=== PATIENT | female | born 1975 ===

== ENCOUNTER 2025-08-03 08:27 | Outpatient (REF) | payer OTHER, SELFPAY ==
--- NOTE | ~2025-08-03 | XR_ITS ---
EXAMINATION: XR HIP 2 OR MORE VIEWS RIGHT HISTORY: M25.551 - Pain in right hip COMPARISON: There are no prior studies available for comparison. FINDINGS: A single AP view of the pelvis and two views of the right hip are submitted. Osseous mineralization is normal. There is no fracture or dislocation. The joint space is maintained. The soft tissues are unremarkable. XR/XR hip RT min 2V IMPRESSION: Unremarkable examination of the right hip. Electronically signed by: Zackary Massey MD 08/03/2025 10:28 AM EDT
--- OUTSIDE RECORDS SUMMARY | 2025-08-04 08:46 | XMS_ITS | Clinical Summary ---
Author Organization [facility], Address [address] [place] [address] Phone Care Team Providers Care E Commerce Developer Name Role Phone Unavailable Primary Care Provider [...]
--- OUTSIDE RECORDS SUMMARY | 2025-08-04 08:46 | XMS_ITS | Clinical Summary ---
Author Organization [facility] Address [address] [place] [address] Phone Care Team Providers Care Atm Servicer Name Role Phone Physician, No Pcp Primary [...] - 06/29/2025 11:59 PM EDT Hospital Encounter [facility] Xray [address] [place] [address] Right hip pain Discharge Disposition: Home or Self Care 05/18/2025 4:30 PM EDT Office Visit Neurosurgery [place] [facility] [address] [place] [address] Tracey Storey MD Right hip pain (Primary Dx); Intractable back pain from Last 3 Months Surgical History Surgery Date Site/Laterality Comments KNEE ARTHROPLASTY Bilateral PROCEDURE: RI ARTHRS KNEE ABRASION ARTHRP/ICT ANALYST DRLG/MICROFX CARPAL TUNNEL RELEASE Bilateral PROCEDURE: RI NEUROPLASTY &/TRANSPOS MEDIAN NRV CARPAL TUNNE APPENDECTOMY PROCEDURE: RI APPENDECTOMY SECTION PROCEDURE: HISTORICAL DELIVERY ELBOW SURGERY Bilateral PROCEDURE: HISTORICAL ELBOW SURGERY SHOULDER SURGERY Bilateral PROCEDURE: HISTORICAL SHOULDER SURGERY LUMBAR FUSION 4 years ago Alif BARIATRIC SURGERY approx Medical History Medical History Date Comments Diabetes mellitus type 2, co ntrolled, with complications (CMS/HCC V24, CMS/HCC V28) DX:Diabetes mellitus type 2, controlled, with complications ([facility]) Depressive disorder DX:Depressiv e disorder Anxiety [...] of the pelvis and right hip. Code 00379 -------- FINAL REPORT -------- Dictated By: Sammy Young Dictated Date: 06/29/2025 09:21 ET Assigned Physician: Sammy Young Reviewed and Electronically Signed By: Sammy Young Signed Date: 06/29/2025 09:23 ET Workstation ID: [id number] Transcribed By: Self Edit Transcribed Date: 06/29/2025 [...] of the pelvis and right hip. Code 00205 -------- FINAL REPORT -------- Dictated By: Sammy Young Dictated Date: 06/29/2025 09:21 ET Assigned Physician: Sammy Young Reviewed and Electronically Signed By: Sammy Young Signed Date: 06/29/2025 09:23 ET Workstation ID: [id number] Transcribed By: Self Edit Transcribed Date: 06/29/2025 09:21 ET Tracey Storey MD IMG XR PROCEDURES Final Result * (ABNORMAL) Hemoglobin A1c (03/22/2025 9:10 PM EDT) Hemoglobin A1C 8.3(H) <6.5 % LAB CHEMISTRY METHOD 03/23/2025 1:53 PM EDT [facility] Mean Bld Glu Estim. 192 mg/dL LAB CHEMISTRY METHOD 03/23/2025 1:53 PM EDT [facility] Blood Venous blood specimen / Unknown Venipuncture / Unknown 03/22/2025 9:10 PM EDT 03/22/2025 9:39 PM EDT us Eva BENNETT LAB BLOOD ORDERABLES Final R esult [facility] [address] [place] [address], [place] [phone] * (ABNORMAL) Comprehensive metabolic panel (03/22/2025 9:10 PM EDT) Sodium 136 133 - 145 mmol/L LAB CHEMISTRY METHOD 03/22/2025 10:04 PM [facility] Potassium 4.3 3.5 - 5.5 mmol/L LAB CHEMISTRY METHOD 03/22/2025 10:04 PM [facility] Chloride 101 96 - 110 mmol/L LAB CHEMISTRY METHOD 03/22/2025 10:04 PM [facility] CO2 30 21 - 32 mmol/L LAB CHEMISTRY METHOD 03/22/2025 10:04 PM [facility] Anion Gap 5 3 - 11 LAB CHEMISTRY METHOD 03/22/2025 10:04 PM [facility] Glucose 179(H) 70 - 100 mg/dL LAB CHEMISTRY METHOD 03/22/2025 10:04 PM [facility] BUN 13 5 - 25 mg/dL LAB CHEMISTRY METHOD 03/22/2025 10:04 PM [facility] Creatinine 0.76 0.50 - 1.10 mg/dL LAB CHEMISTRY METHOD 03/22/2025 10:04 PM [facility] eGFR 97 >=60 mL/min/1. 73m2 LAB CHEMISTRY METHOD 03/22/2025 10:04 PM [facility] Comment:Calculation based on the Chronic Kidney Disease Epidemiology Collaboration (CKD-EPI) equation refit without adjustment for race. BUN/Creatinine Ratio 17.1 LAB CHEMISTRY METHOD 03/22/2025 10:04 PM [facility] Calcium 9.1 8.5 - 10.5 mg/dL LAB CHEMISTRY METHOD 03/22/2025 10:04 PM [facility] AST (SGOT) 35 10 - 42 unit/L LAB CHEMISTRY METHOD 03/22/2025 10:04 PM [facility] ALT (SGPT) 31 10 - 60 unit/L LAB CHEMISTRY METHOD 03/22/2025 10:04 PM [facility] Alkaline Phosphatase 79 42 - 121 unit/L LAB CHEMISTRY METHOD 03/22/2025 10:04 PM [facility] Total Protein 7.7 6.0 - 8.0 g/dL LAB CHEMISTRY METHOD 03/22/2025 10:04 PM EDT [facility] Albumin 3.9 3.2 - 5.0 g/dL LAB CHEMISTRY METHOD 03/22/2025 10:04 PM EDT [facility] Total Bilirubin 0.4 0.0 - 1.4 mg/dL LAB CHEMISTRY METHOD 03/22/2025 10:04 PM EDT [facility] Blood Venous blood specimen / Unknown Venipuncture / Unknown 03/22/2025 9:10 PM EDT 03/22/2025 9:39 PM EDT us Kimmy BENNETT LAB BLOOD ORDERABLES Final Result [facility] [address] [place] [address], from Last 3 Months or Most Recently [...] currently active code status orders. Care Teams Atm Servicer Relationship Specialty Start Date End Date Physician, No Pcp PCP - General 06/29/25 Bo Carlin CNP Primary Care Provider 05/18/25
--- OUTSIDE RECORDS SUMMARY | 2025-08-04 08:46 | XMS_ITS | Clinical Summary ---
Author Organization [facility] Address [address] [place] [address] Care Team Providers Care Cad Administrator Name Role Phone Kelly Nyasia Patel [facility] Primary Care Provider [phone] Source Comments PLEASE NOTE, if this patient [...] complication, with long-term current use of insulin Use to check BG 1-2x/d UD DX [...] complication, with long-term current use of insulin Use to check BG 1x/d DX E11.9 Freestyle Lite 50 Each 2 Active lancets (FREESTYLE LANCETS) 28 gaugeIndications:T ype 2 diabetes mellitus without complication, with long-term current use of insulin USE TO TEST BLOOD GLUCOSE ONCE DAILY [...] complication, with long-term current use of insulin TAKE 1 TABLET BY MOUTH DAILY WITH [...] knee 0 Overview (11/30/2021): 11/12/20 Eval at [facility]. Recommends PT. Given brace. F/u PRN. Fibromyalgia 03/16/2020 Overview (03/02/2021): 04/27/[address] Osei at [facility]. Lab work sent. Continue gabapentin, f/u 2 weeks. 05/12/[address] Osei at [facility]. Recommends continue current medications. Elevated ESR liekly due to anemia. F/u 2 months for labs and /fu. Sprain of right knee 07/06/2018 Overview (01/18/2021): 11/13/2019 Eval at [facility] Ortho. Ordered MRI of knee. H/O complete [...] sleeve gastrectomy 12/11/2017 Overview (12/11/2017): Admitted 11/26/17-11/30/17 [facility], Dr Adkins. Post/op care complicated by intermittent fevers. Given tamiflu for + influenza A. Chronic low back pain s/p discectomy L4-L5 11/12 Overview (11/30/2021): S/p discectomy 2014, R>L, reports chronic disability since her surgery in 2014. Previously took gabapentin Surgery done at [facility] ? Dr Storey MRI 01/31/21 at [facility] shows IMPRESSION: 1. Stable annular fissure at L4-L5 and stable posterior annular bulge with small central protrusion. 2. Mild enhancement in the posterior annulus. 3. No central canal stenosis or neural foraminal narrowing. 03/16/21 F/u Neurosugery, discussed posterior vs anterior approach. Pt to meet with Dr Lezama. 05/17/21 underwent anterior discectomy/fusion L4-L5 at [facility], Dr Lezama. Left elbow pain 11/12/2017 Overview (11/12/2017): Per previous PCP S/P appendectomy 11/12/2017 Bilateral carpal tunnel syndrome 11/12/2017 Overview (11/12/2017): S/p release Depression with anxiety 11/12/2017 History of Helicobacter pylori infection 018 Insomnia 11/12/2017 Morbid Obesity 11/12/2017 Overview (11/21/2017): 11/12/17 Pre-Op viist with Dr Adkins at [facility] Gen Surg. Plan for gastric sleeve surgery Steatosis of liver 11/12/2017 CONCHITA (obstructive sleep apnea) 11/12/2017 Overview (11/12/2017): On CPAP PTSD (post-traumatic stress disorder) 11/12/2017 Overview (11/14/2017): Seen by Mary Maciel at [facility]. For PTSD and Depressive D/o, Prescribed Trazodone 100 mg qhs, Klonopin 1 mg TID, Ambien [address] Markus Michael Type 2 diabetes mellitus wit hout complication, with long-term current use of insulin 10/22/2017 Overview (11/12/2017): Followed by Dr Grossman, [facility] Endocrine Managed on Lantus 40, metformin [...] Screening 12/08/2020 12/08/2019 Hemoglobin A1c 04/03/2021 10/04/2020, 02/0 01/2020, 12/17/2017 CT Colonography 2021 Colonoscopy 2021 Colorectal [...] 06/26/20 22, 05/20/2020, 12/08/2019, Additional history exists [id number] ( season) 2025 11/17/2021, 04/26/2021, 04/05/2021 Imm-Influenza (#1) 2025 10/04/2020, [...] complication, with long-term current use of insulin ([facility]) from Last 3 Months or Most Recently Relevant to Health Maintenance Results * (ABNORMAL) HEMOGLOBIN, GLYCOSYLATED (A1C) (10/04/2020 9:55 AM EST) GLYCATED HEMOGLOBIN A1C 6.8(H) <6.5 % [facility] ESTIMATED AVERAGE GLUCOSE 148 mg/dL [facility] 10/04/2020 9:55 AM EST 10/04/2020 11:03 AM EST Narrative [facility] - 10/04/2020 1:55 PM EST [employer], [place] [address] Programmer Analyst Health It - Sarah Benites MD PT ID [id number] ORD# [id number] Nyasia Mendoza [facility] - BLOOD DRAW Final Re sult [facility] [address] [place] [address], * (ABNORMAL) COMPRE METAB PANEL (10/04/2020 9:55 AM EST) GLUCOSE 127(H) 70 - 100 mg/dL [facility] Comment:Reference range appl icable to fasting specimens only BUN 16 5 - 25 mg/dL [facility] CREAT 0.86 0.5 - 1.1 mg/dL [facility] GLOMERULAR FILTRATION RATE > 60 [facility] Comment: If patient is -Ghanaian, multiply result by 1.21 Chronic Kidney Disease: < 60 ml/min/1.73 square meters Kidney Failure: < 15 ml/min/1.73 square meters SODIUM 138 135 - 145 mEq/L [facility] POTASSIUM 4.2 3.5 - 5.5 mmol/L [facility] CHLORIDE 107 96 - 110 mmol/L [facility] CO2 25 21 - 32 mmol/L [facility] ANION GAP 6 3 - 11 [facility] CALCIUM 9.5 8.5 - 10.5 mg/dL [facility] ALBUMIN 3.8 3.2 - 5.0 G/dL [facility] 10/04/2020 9:55 AM EST 10/04/2020 11:03 AM EST Narrative [facility] - 10/04/2020 1:11 PM EST [facility] [employer], a member of [address] [address] Programmer Analyst [employer] It - Sarah Benites MD PT ID [id number] ORD# [id number] Nyasia Simeoninda [facility] - BLOOD DRAW Final Re sult [facility] [address] [place] [address], * LIPID PANEL (12/08/2019 9:52 AM EST) CHOLESTEROL 175 0 - 200 mg/dL [facility] TRIGLYCERIDES 92 0 - 150 mg/dL [facility] HDL CHOLESTEROL 58 >40 mg/dL [facility] LDL CALCULATED 99 0 - 100 mg/dL [facility] TC-HDLC RATIO 3.0 0 - 4.4 mg/dL [facility] Blood specimen (specimen) Blood / Unknown 12/08/2019 9:52 AM EST 12/08/2019 11:27 AM EST Narrative [facility] - 12/08/2019 4:52 PM EST [employer] [place] [address] Programmer Analyst [employer] It - Sarah Benites MD PT ID [id number] ORD# [id number] Nyasia [facility] - [place] [address], * MICROALBUMIN/CREATININE RATIO, URINE, RANDOM (12/08/2019 9:51 AM EST) CREATININE, RANDOM URINE 278 mg/dL [facility] MICROALBUMIN, RANDOM 19.5 0.0 - 29.0 mg/L [facility] MICROALB/CRE RATIO RANDOM 7.0 0.0 - 30.0 mg/G [facility] Urine specimen (specimen) Urine specimen / Unknown 12/08/2019 9:51 AM EST 12/08/2019 11:27 AM EST Narrative [facility] - 12/08/2019 5:00 PM EST [employer] [place] [address] Programmer Analyst [employer] It - Sarah Benites MD PT ID [id number] ORD# [id number] Ny[facility] URINE AMBULATORY Edit ed Result - Final [facility] [address] [place] [address], from Last 3 Months or Most Recently Relevant to Health Maintenance [facility] Care Teams Cad Administrator Relationship Specialty Start Date End Date Nyasia Mendoza FNP [address] [place] [address] PCP - General Family Medicine, SUPERVISOR ROLLING ROOM 12/06/16
== END 2025-08-03 08:28 | disposition home or self-care (01) ==
LOC: HO.HOSX 08:27
PROVIDERS: Visit Provider Physician Assistant
DX: M70.61 Trochanteric bursitis, right hip (principal)
CPT/HCPCS: 73502; 99202

== ENCOUNTER 2025-08-03 09:28 | Outpatient (AMB) | payer OTHER, SELFPAY ==
--- NOTE | 2025-08-03 09:47 | A.OFFVIS_ITS ---
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 Patient reports her pain has been present since March, denies injury. MRI of lumbar spine was obtained while she was hospitalized at [facility]. Her pain is located at the lateral aspect of hip that travels down her leg to her knee and into her groin area. An order for at home therapy was placed however this increased her pain. No other treatment to her hip. Allergies ciprofloxacin (From CIPRO) Allergy (Unknown, Verified 08/03/25 09:59) HIVES cortisone (CORTISONE) Allergy (Unknown, Verified 08/03/25 09:59) CHEST TIGHTENS penicillin G Allergy (Unknown, Verified 08/03/25 09:59) Unknown Penicillins (PCN) Allergy (Unknown, Verified 08/03/25 09:59) HIVES Medication List - Last Reconciled 08/03/25 by Gwyn Isaac PA-C amitriptyline 100 mg PO BEDTIME celecoxib (Celebrex) 200 mg PO BID 30 days diclofenac sodium 1% 4 grams topical QID 30 days omeprazole 20 mg PO BID rosuvastatin 5 mg PO DAILY HPI HPI LEADERSHIP DEVELOPMENT MANAGER-RT hip pain: Details: 49 yo female presents to the office today for right hip pain since March 2025. She states she flew to [place] and then back and suddenly had pain. She feels when she walks it feels the hip is crushing. She states she has numbness that goes down the leg. she c/o pain along the lateral side of the hip which is worse with sleeping. She did have an MRI of the LB spine which shows Disc bulge L3-4. She also had L4-5 disc [place] [address] [facility] Surgical History (Updated 08/03/25 @ 09:52 by ZURDO Cha) History of sleeve gastrectomy Hx of section Hx of appendectomy History of elbow surgery History of lumbar surgery History of arthroscopic surgery of shoulder Hx of carpal tunnel repair Hx of knee surgery Social History (Updated 08/03/25 @ 09:52 by ZURDO Cha) Patient Tobacco Use Status: Never used Tobacco Current occupational status: unemployed Review of Systems Const All systems reviewed & are unremarkable except as noted in HPI and below Physical Exam Vital Signs: BMI result Body Mass Index 34.0 Const General: cooperative, healthy appearing, comfortable and no acute distress Orientation/consciousness: patient oriented x3 HEENT Head: Yes normal to inspection and Yes atraumatic Ears: hearing grossly normal bilaterally Eyes General: appearance normal, both eyes and all related structures Neck Neck: Yes normal visual inspection and Yes no lymphadenopathy Resp Effort & Inspection: normal respiratory effort and able to speak in complete sentences Cardio Peripheral pulses: Peripheral pulses 2+ throughout Neuro General: patient oriented x3 Extrem Other: Right hip normal to inspection. No pain with ROM of the hip. Pain along the greater trochanter. No pain with hip flexion or abduction.There is tenderness along the si joint, Negative SLR. NVI. Psych Appearance: well kempt Results Reviewed Results Reviewed: Xrays were obtained in the office today and personally reviewed by me of the right hip are negative for acute or chronic abnormalities Assessment & Plan Assessment & Plan (1) Trochanteric bursitis, right hip: Code(s): M70.61 - Trochanteric bursitis, right hip Category: Medical Plan: Discussed options which includes physical therapy to work on strengthening and conditioning. She is allergic to steroid and therefore can not have cortisone injection. I did send a prescription for Celebrex to the pharmacy to try for 2 weeks to help with inflammation. I also sent a prescription for diclofenac gel. The patient will follow up with any concerns otherwise as needed. Orders: Orders XR hip RT min 2V Today M25.551 - Pain in right hip PT Evaluation and Treatment Today M70.61 - Trochanteric bursitis, right hip Medications: New celecoxib (Celebrex) 200 mg PO BID 60 caps 3RF 30 days diclofenac sodium 1% apply to single knee, ankle, foot; for foot includes sole/toes/top of foot 4 grams topical QID 100 grams 0RF 30 days Coding Level of Care Code New Pt Level 3 (29378) Complex EM visit Add On G2211 Diagnoses Trochanteric bursitis, right hip M70.61
[2025-08-03 09:48] VITALS: BMI 34.0
--- OUTSIDE RECORDS SUMMARY | 2025-08-03 10:15 | XMS_ITS | Clinical Summary ---
Author Organization [facility] Address [address] [place] [address] Phone Care Team Providers Care Block Piler Name Role Phone Physician, No Pcp Primary Care Provider Unavaila ble Allergies Active Allergy Reactions Criticality Noted Date Comments Ciprofloxacin Hives 03/22/2025 Cortisone Unknown 03/23/2025 Penicillins Unknown 03/22/2025 Childhood Medications amitriptyline (ELAVIL) 100 mg tablet Take 1 tablet (100 mg total) by mouth at bedtime. at bedtime 5 Active omeprazole (PriLOSEC) [address] capsule Take 1 capsule (20 mg total) by mouth 2 (two) times a day before meals. Active rosuvastatin (CRESTOR) 5 mg tablet Take 1 tablet (5 mg total) by mouth 1 (one) time each day. at bedtime Active Heartburn Relief, famotidine, 10 mg tablet Take 1 tablet (10 mg total) by mouth 2 (two) times a day. Active naloxone (NARCAN) 4 mg/0.1 mL nasal sprayIndications :opioid overdose,opioid- induced respiratory depression Administer 1 each (4 mg total) into affected nostril(s) if needed for opioid reversal or respiratory depression. Give 4 mg (1 spray) into one nostril. May repeat every 2-3 minutes if needed, alternating nostrils, until medical assistance becomes available. 2 each 5 03/23/20 26 Active acetaminophen (TYLENOL) 500 mg tablet Take 1 tablet (500 mg total) by mouth. 1 Active tiZANidine (ZANAFLEX) 4 mg tablet Take 0.5 tablets (2 mg total) by mouth every 8 (eight) hours if needed for muscle spasms. 45 tablet 5 Active Active Problems Problem Noted Date Diagnosed Date Right hip pain 05/18/2025 Assessment & Plan (05/18/2025 5:57 PM EDT): The focus of Ms. Narvaez's pain is really at the right hip. This is why she is using a walker and why she is falling. She is tender at the hip and with mechanical testing in each direction provoking the same pain in her hip and groin. There was no trauma but this is unremitting and she describes it as feeling like bone crushing . I am going to send her for right hip x-rays and will then refer to orthopedics if there is any finding. Intractable back pain 03/23/2025 Assessment & Plan (05/18/2025 5:44 PM EDT): Ms. Narvaez was referred back for intractable back pain after her long plane ride but the majority of this radiates to her right hip and leg. She states there was no improvement with home physical therapy and the lumbar spine MRI from her trip to the emergency room looks good, with no source of her right radiculopathy and, equally is importantly, no sign of adjacent segment disease. She continues to use a walker and has fallen a few times flaring up her right sided pain and spasm, she states this does not feel like her fibromyalgia which typically manifests in her upper extremities. I have renewed her tizanidine. Encounters Date Type Department Care Team Description 06/29/2025 9:03 AM EDT - 06/29/2025 11:59 PM EDT Hospital Encounter [facility] [address] [place] [address] Right hip pain Discharge Disposition: Home or Self Care 05/18/2025 4:30 PM EDT Office Visit Neuro[facility] [address] [place] [address] Tracey Storey MD Right hip pain (Primary Dx); Intractable back pain from Last 3 Months Surgical History Surgery Date Site/Laterality Comments KNEE ARTHROPLASTY Bilateral PROCEDURE: HI ARTHRS KNEE ABRASION ARTHRP/RURAL CARRIER ASSOCIATE DRLG/MICROFX CARPAL TUNNEL RELEASE Bilateral PROCEDURE: HI NEUROPLASTY &/TRANSPOS MEDIAN NRV CARPAL TUNNE APPENDECTOMY PROCEDURE: HI APPENDECTOMY SECTION PROCEDURE: HISTORICAL DELIVERY ELBOW SURGERY Bilateral PROCEDURE: HISTORICAL ELBOW SURGERY SHOULDER SURGERY Bilateral PROCEDURE: HISTORICAL SHOULDER SURGERY LUMBAR FUSION 4 years ago Alif BARIATRIC SURGERY approx Medical History Medical History Date Comments Diabetes mellitus type 2, co ntrolled, with complications (CMS/HCC V24, CMS/HCC V28) DX:Diabetes mellitus type 2, controlled, with complications ([facility]) Depressive disorder DX:Depressiv e disorder Anxiety state DX:Anxiety state Fibromyalgia Social History Tobacco Use Types Packs/Day Years Used Date Smoking Tobacco: Never Smokeless Tobacco: Never Alcohol Use Standard Drinks/Week Comments Never 0 (1 standard drink = 0.6 oz pur e alcohol) Interpersonal Safety Answer Date Record ed Physical Abuse Unrecognized value 03/23/2025 Verbal Abuse Unrecognized value 03/23/2025 Comments Unknown Sex and Gender Information Value Date Recorded Sex Assigned at Not on file Legal Sex Female 9:03 AM EST Gender Identity Not on file Sexual Orientation Not on file Obstetrics History Last Filed Vital Signs Vital Sign Reading Time Taken Comments Blood Pressure 128/74 03/23/2025 3:01 PM EDT Pulse 86 03/23/2025 3:01 PM EDT Temperature 36.7 C (98.1 F) 03/23/2025 3:01 PM EDT Respiratory Rate 16 03/23/2025 3:01 PM EDT Oxygen Saturation 96% 03/23/2025 3:01 PM EDT Inhaled Oxygen Concentration - - Weight 90.7 kg (200 lb) 05/18/2025 4:51 PM EDT Height 160 cm (5' 3 ) 05/18/2025 4:51 PM EDT Body Mass Index 35.43 05/18/2025 4:51 PM EDT Plan of Treatment Health Maintenance Due Date Last Done Comments Breast Cancer Screening 1976 Colorectal Cancer Screening: Colonoscopy 1976 Diabetes: Annual Foot Exam 1986 Diabetes: Annual Retina Eye Exam 1986 Hepatitis A Vaccines (1 of 2 - Risk 2-dose series) 1995 Cervical Cancer Screening: Pap Smear 1997 Hepatitis B Vaccines (2 of 2 - CpG 2-dose series) 11/01/2020 10/04/2020 HIV Screening 10/08/2022 Hepatitis C Screening 10/08/2022 Social Influencers of Health Screening 10/08/2022 Depression Screening 11/05/2024 Cholesterol Screening (Lipid Panel) 12/08/2024 12/08/2019, 12/08/2019, 12/17/2017 Diabetes: Annual Urine Albumin-Creatinine Ratio (uACR) 03/22/2025 12/08/2019 Influenza Vaccine (#1) 2025 , 10/04/2020, 08/02/2017, Additional history exists Diabetes: Blood Sugar Control Test (HGBA1C) 09/22/2025 03/22/2025, 10/04/2020 Diabetes: Annual GFR (Glomerular Filtration Rate) 03/22/2026 03/22/2025, 10/04/2020 DTaP,Tdap,and Td Vaccines (3 - Td or Tdap) 12/08/2029 12/08/2019, 12/22/2008 RSV Immunization Adult Patients (1 - 1-dose 75+ series) 2051 COVID-19 Vaccine Completed 11/12/2024, , 04/26/2021, Additional history exists Pneumococcal Vaccine: Pediatrics (0 to 5 Years) and At-Risk Patients (6 to 49 Years) Aged Out 11/12/2024, 05/29/2013 No longer eligibl e based on patient's age to complete this topic HIB Vaccines Aged Out No longer eligi ble based on patient's age to complete this topic HPV Vaccines Aged Out No longer eligi ble based on patient's age to complete this topic IPV Vaccines Aged Out No longer eligi ble based on patient's age to complete this topic MMR Vaccines Aged Out No longer eligi ble based on patient's age to complete this topic Meningococcal ACWY Vaccine Aged Out N o longer eligible based on patient's age to complete this topic Meningococcal B Vaccine Aged Out No l onger eligible based on patient's age to complete this topic RSV Immunization Patients Under 20 months Aged Out No longer eligible based on patient's age to complete this topic Varicella Vaccines Aged Out No longer eligible based on patient's age to complete this topic Procedures Procedure Name Priority Date/Time Associated Diagnosis Comments XR HIP 2-3 VIEWS RIGHT Routine 9:17 AM EDT Right hip pain COMPREHENSIVE METABOLIC PANEL STAT 03/22/2025 9:10 PM EDT HEMOGLOBIN A1C Add-On 03/22/2025 9:10 PM EDT from Last 3 Months or Most Recently Relevant to Health Maintenance Results * XR Hip 2-3 Views Right (06/29/2025 9:17 AM EDT) Anatomical Region Laterality Modality Lower Extremities, Hip Right Radiograp hic Imaging 06/29/2025 9:21 AM EDT Impressions 06/29/2025 9:23 AM EDT Normal examination of the pelvis and right hip. Code 82379 -------- FINAL REPORT -------- Dictated By: Sammy Young Dictated Date: 06/29/2025 09:21 ET Assigned Physician: Sammy Young Reviewed and Electronically Signed By: Sammy Young Signed Date: 06/29/2025 09:23 ET Workstation ID: [id number] Transcribed By: Self Edit Transcribed Date: 06/29/2025 09:21 ET Narrative 06/29/2025 9:23 AM EDT HISTORY: The patient is a 49-year-old female with chronic right hip pain, nontraumatic. FINDINGS: AP radiograph of the pelvis, along with coned-down AP and external rotation-abduction views of the right hip, are obtained. The study demonstrates no fracture, dislocation, or arthritic change. No osteolytic or osteoblastic lesion is demonstrated. No soft tissue abnormality is seen. The included portion of the lower lumbar spine demonstrates a disc prosthesis at the L4-5 level. Surgical clips are present in the left side of the pelvis. Procedure Note Sammy Young MD - 06/29/2025 HISTORY: The patient is a 49-year-old female with chronic right hip pain,nontraumatic. FINDINGS: AP radiograph of the pelvis, along with coned-down AP andexternal rotation-abduction views of the right hip, are obtained. Thestudy demonstrates no fracture, dislocation, or arthritic change. Noosteolytic or osteoblastic lesion is demonstrated. No soft tissueabnormality is seen. The included portion of the lower lumbar spine demonstrates a discprosthesis at the L4-5 level. Surgical clips are present in the left sideof the pelvis. IMPRESSION: Normal examination of the pelvis and right hip. Code 60585 -------- FINAL REPORT -------- Dictated By: Sammy Young Dictated Date: 06/29/2025 09:21 ET Assigned Physician: Sammy Young Reviewed and Electronically Signed By: Sammy Young Signed Date: 06/29/2025 09:23 ET Workstation ID: [id number] Transcribed By: Self Edit Transcribed Date: 06/29/2025 09:21 ET Tracey Storey MD IMG XR PROCEDURES Final Result * (ABNORMAL) Hemoglobin A1c (03/22/2025 9:10 PM EDT) Hemoglobin A1C 8.3(H) <6.5 % LAB CHEMISTRY METHOD 03/23/2025 1:53 PM EDT [facility] Mean Bld Glu Estim. 192 mg/dL LAB CHEMISTRY METHOD 03/23/2025 1:53 PM EDT [facility] Blood Venous blood specimen / Unknown Venipuncture / Unknown 03/22/2025 9:10 PM EDT 03/22/2025 9:39 PM EDT us Eva BENNETT LAB BLOOD ORDERABLES Final R esult [facility] [address] [place] [address], [place] [phone] * (ABNORMAL) Comprehensive metabolic panel (03/22/2025 9:10 PM EDT) Sodium 136 133 - 145 mmol/L LAB CHEMISTRY METHOD 03/22/2025 10:04 PM [facility] Potassium 4.3 3.5 - 5.5 mmol/L LAB CHEMISTRY METHOD 03/22/2025 10:04 PM [facility] Chloride 101 96 - 110 mmol/L LAB CHEMISTRY METHOD 03/22/2025 10:04 PM [facility] CO2 30 21 - 32 mmol/L LAB CHEMISTRY METHOD 03/22/2025 10:04 PM [facility] Anion Gap 5 3 - 11 LAB CHEMISTRY METHOD 03/22/2025 10:04 PM [facility] Glucose 179(H) 70 - 100 mg/dL LAB CHEMISTRY METHOD 03/22/2025 10:04 PM [facility] BUN 13 5 - 25 mg/dL LAB CHEMISTRY METHOD 03/22/2025 10:04 PM [facility] Creatinine 0.76 0.50 - 1.10 mg/dL LAB CHEMISTRY METHOD 03/22/2025 10:04 PM [facility] eGFR 97 >=60 mL/min/1. 73m2 LAB CHEMISTRY METHOD 03/22/2025 10:04 PM [facility] Comment:Calculation based on the Chronic Kidney Disease Epidemiology Collaboration (CKD-EPI) equation refit without adjustment for race. BUN/Creatinine Ratio 17.1 LAB CHEMISTRY METHOD 03/22/2025 10:04 PM [facility] Calcium 9.1 8.5 - 10.5 mg/dL LAB CHEMISTRY METHOD 03/22/2025 10:04 PM [facility] AST (SGOT) 35 10 - 42 unit/L LAB CHEMISTRY METHOD 03/22/2025 10:04 PM [facility] ALT (SGPT) 31 10 - 60 unit/L LAB CHEMISTRY METHOD 03/22/2025 10:04 PM [facility] Alkaline Phosphatase 79 42 - 121 unit/L LAB CHEMISTRY METHOD 03/22/2025 10:04 PM [facility] Total Protein 7.7 6.0 - 8.0 g/dL LAB CHEMISTRY METHOD 03/22/2025 10:04 PM EDT [facility] Albumin 3.9 3.2 - 5.0 g/dL LAB CHEMISTRY METHOD 03/22/2025 10:04 PM EDT [facility] Total Bilirubin 0.4 0.0 - 1.4 mg/dL LAB CHEMISTRY METHOD 03/22/2025 10:04 PM EDT [facility] Blood Venous blood specimen / Unknown Venipuncture / Unknown 03/22/2025 9:10 PM EDT 03/22/2025 9:39 PM EDT us Kimmy BENNETT LAB BLOOD ORDERABLES Final Result [facility] [address] [place] [address], from Last 3 Months or Most Recently Relevant to Health Maintenance Insurance [employer] [place] [employer] Advance Directives * Full Code - Default (Latest Code Status on File) Date Activated Date Inactivated Comments 03/23/2025 12:23 AM 03/23/2025 8:45 PM This is ord er is used when code status has not been discussed with the patient, or code status is otherwise unknown/unconfirmed To update the patient's code status, place a code status order. Do not modify or discontinue any currently active code status orders. Care Teams Block Piler Relationship Specialty Start Date End Date Physician, No Pcp PCP - General 06/29/25 Bo Carlin CNP Primary Care Provider 05/18/25
--- OUTSIDE RECORDS SUMMARY | 2025-08-03 10:15 | XMS_ITS | Clinical Summary ---
Author Organization [facility] Address [address] [place] [address] Care Team Providers Care Lever Tender Name Role Phone Kelly Molly [facility] Primary Care Provider [phone] Source Comments PLEASE NOTE, if this patient is a minor, it may be UNLAWFUL to discuss sensitive information that is contained in these records (such as FAMILY PLANNING, MENTAL HEALTH or SUBSTANCE ABUSE) with the minor patient's parent or other person without the patient's specific authorization.[facility] Allergies Active Allergy Reactions Criticality Noted Date Comments Cat Dander Hives 10/22/2017 Ciprofloxacin Hives 10/22/2017 Swelling and hives Cortisone SOB 10/22/2017 Penicillins Hives 10/22/2017 Medications blood-glucose meter monitoring kitIndications:Typ e 2 diabetes mellitus without complication, with long-term current use of insulin ([facility]) Use to check BG 1-2x/d UD DX E11.9 Freestyle Lite 1 Each 0 Active loperamide (IMODIUM A-D) 2 mg capsuleIndications :Chronic diarrhea Take 1 Cap by mouth 4 (four) times daily as needed for diarrhea 120 Cap 2 0 Active LORazepam (ATIVAN) 0.5 mg tabletIndications: Grief reaction Take 1 Tab by mouth nightly at bedtime as needed for anxiety 10 Tab 0 Active ferrous sulfate 325 mg (65 mg iron) tabletIndications: Iron deficiency anemia, unspecified iron deficiency anemia type Take 1 Tablet by mouth 2 (two) times daily with a meal 180 Tablet 1 0 Active acetaminophen (TYLENOL) 500 mg tabletIndications: Lumbar strain, initial encounter Take 1 Tablet by mouth every 4 (four) hours as needed for pain 120 Tablet 1 Active lidocaine (LIDODERM) 5 % patchIndications:C hronic pain of right knee Place 1 Patch onto the skin once daily (every 24 hours) 30 Patch 2 1 Active pregabalin (LYRICA) 75 mg capsuleIndications :Chronic right-sided low back pain with right-sided sciatica Take 1 Capsule by mouth 3 (three) times daily Further refills requires appt with PCP 21 Capsule 2 Active omeprazole (PRILOSEC) [address] capsuleIndications :S/P laparoscopic sleeve gastrectomy,Chroni c abdominal pain,Nausea and vomiting, intractability of vomiting not specified, unspecified vomiting type Take 1 Capsule by mouth 2 (two) times daily Further refills requires appt with PCP 14 Capsule 2 Active blood sugar diagnostic stripsIndications: Type 2 diabetes mellitus without complication, with long-term current use of insulin ([facility]) Use to check BG 1x/d DX E11.9 Freestyle Lite 50 Each 2 Active lancets (FREESTYLE LANCETS) 28 gaugeIndications:T ype 2 diabetes mellitus without complication, with long-term current use of insulin ([facility]) USE TO TEST BLOOD GLUCOSE ONCE DAILY 50 Each 2 Active traZODone (DESYREL) 50 mg tabletIndications: Depression with anxiety,PTSD (post-traumatic stress disorder) Take 1 Tablet by mouth nightly at bedtime Appt required for further refills. 7 Tablet 2 Active methocarbamoL (ROBAXIN) 500 mg tablet TAKE 1 TABLET BY MOUTH THREE TIMES DAILY NEEDED FOR MUSCLE SPASM 21 Tablet 2 Active metFORMIN (GLUCOPHAGE-XR) 750 mg 24 hr tabletIndications: Type 2 diabetes mellitus without complication, with long-term current use of insulin ([facility]) TAKE 1 TABLET BY MOUTH DAILY WITH DINNER. NEED APPT FOR REFILLS 7 Tablet 2 Active Active Problems Patient Care Coordination No te Formatting of this note migh t be different from the original. DME-cane, diabetic glucose monitor, CPAP-does not use it, wears glasses-needs PT-1-needs referral to [facility] Problem Noted Date Diagnosed Date Left ankle sprain 12/01/2021 Overview (12/01/2021): 11/01/[address] Stevens, [facility]. Dx: Left ankle sprain/ possible avulsion fracture. Recommend continue boot with full WB x 3 weeks and then f/u to start PT. COVID-19 07/21/2021 Overview (07/21/2021): tested positive for covid on 07/15/21 Vitamin D deficiency 01/07/2021 Iron deficiency anemia 10/04/2020 Anemia 07/19/2020 Patellofemoral arthritis of right knee 0 Overview (11/30/2021): 11/12/20 Eval at [facility]. Recommends PT. Given brace. F/u PRN. Fibromyalgia 03/16/2020 Overview (03/02/2021): 04/27/[address] Osei at [facility]. Lab work sent. Continue gabapentin, f/u 2 weeks. 05/12/[address] Osei at [facility]. Recommends continue current medications. Elevated ESR liekly due to anemia. F/u 2 months for labs and /fu. Sprain of right knee 07/06/2018 Overview (01/18/2021): 11/13/2019 Eval at [facility]. Ordered MRI of knee. H/O complete eye exam 04/04/2018 Overview (04/04/2018): 03/27/18 [facility]. No DR> Generalized abdominal pain 01/22/2018 Overview (01/22/2018): Admitted 01/08/18-01/12/18 with generalized abd pain. Admitted to surgery for eval d/t recent bariatric surgery. CT AP and UGI c/w postop changes, no leak or obstruction seen. Diet was advised, advised f/u with Dr Fitzgerald in 1-2 weeks. S/P laparoscopic sleeve gastrectomy 12/11/2017 Overview (12/11/2017): Admitted 11/26/17-11/30/17 [facility], Dr Adkins. Post/op care complicated by intermittent fevers. Given tamiflu for + influenza A. Chronic low back pain s/p discectomy L4-L5 11/12 Overview (11/30/2021): S/p discectomy 2014, R>L, reports chronic disability since her surgery in 2014. Previously took gabapentin Surgery done at [facility] ? Dr Storey MRI 01/31/21 at [facility] shows IMPRESSION: 1. Stable annular fissure at L4-L5 and stable posterior annular bulge with small central protrusion. 2. Mild enhancement in the posterior annulus. 3. No central canal stenosis or neural foraminal narrowing. 03/16/21 F/u Neurosugery, discussed posterior vs anterior approach. Pt to meet with Dr Lezama. 05/17/21 underwent anterior discectomy/fusion L4-L5 at [facility], Dr Lezama. Left elbow pain 11/12/2017 Overview (11/12/2017): Per previous PCP S/P appendectomy 11/12/2017 Bilateral carpal tunnel syndrome 11/12/2017 Overview (11/12/2017): S/p release Depression with anxiety 11/12/2017 History of Helicobacter pylori infection 018 Insomnia 11/12/2017 Morbid Obesity 11/12/2017 Overview (11/21/2017): 11/12/17 Pre-Op viist with Dr Adkins at [facility] Gen Surg. Plan for gastric sleeve surgery Steatosis of liver 11/12/2017 CONCHITA (obstructive sleep apnea) 11/12/2017 Overview (11/12/2017): On CPAP PTSD (post-traumatic stress disorder) 11/12/2017 Overview (11/14/2017): Seen by Mary Maciel at [facility]. For PTSD and Depressive D/o, Prescribed Trazodone 100 mg qhs, Klonopin 1 mg TID, Ambien [address] Markus Michael Type 2 diabetes mellitus wit hout complication, with long-term current use of insulin ([facility]) 10/22/2017 Overview (11/12/2017): Followed by Dr Grossman, [facility]ocrine Managed on Lantus 40, metformin 750 BID and glipizide 10 mg. Immunizations Immunization Administration Dates Next Due Flu, Preservative Free 10/04/2020 Hep B,adult,adjuvanted (HEPLISAV) 10/04/2020 INFLUENZA, SEASONAL, INJECTABLE 08/02/2017,09/24 PNEUMOCOCCAL POLYSACCHARIDE PPV23 (Pneumovax 23) 05/29/2013 TDAP 12/22/2008 Td (adult), 5 Lf tetanus tox oid (Tenivac), preservative free 12/08/2019 Family History Medical History Relation Name Comments No Known Problems Brother 1 No Known Problems Brother 2 Asthma Daughter 1 Asthma Daughter 2 Diabetes Father Heart Problems Father Kidney disease Maternal Aunt Depression Mother Diabetes Mother No Known Problems Sister 1 No Known Problems Sister 2 ADD / ADHD Son Relation Name Status Comments Brother 1 Alive Brother 2 Alive Daughter 1 Alive Daughter 2 Alive Father Alive Maternal Aunt Alive Mother Alive Sister 1 Alive Sister 2 Alive Son Alive Social History Tobacco Use Types Packs/Day Years Used Date Smoking Tobacco: Never Smokeless Tobacco: Never Tobacco Cessation:Counseling Given: Not Answered Alcohol Use Standard Drinks/Week Comments Never 0 (1 standard drink = 0.6 oz pur e alcohol) Social Connections Answer Date Recorded Connectedness 0 11/28/2019 Financial Resource Strain Answer Date R ecorded Financial Resource Strain 0 2019 Stress Answer Date Recorded Stress 0 11/28/2019 Physical Activity Answer Date Recorded Physical Activity 0 11/28/2019 Food Insecurity Answer Date Recorded Food 0 11/28/2019 Transportation Needs Answer Date Record ed Transportation 0 11/28/2019 Housing Stability Answer Date Recorded Housing 0 11/28/2019 Safety and Environment Answer Date Eric rded Safety 0 06/26/2022 Utilities Answer Date Recorded Utilities 0 11/28/2019 Employment Answer Date Recorded Stress 0 11/28/2019 Comments No Sex and Gender Information Value Date Recorded Sex Assigned at Female 10/22/2017 10:53 AM PST Legal Sex Female 1:09 PM PDT Gender Identity Female 10/22/2017 10:53 AM PST Sexual Orientation Straight 10/22/2017 10 :53 AM PST Occupation Industry Job Start Date Job End Date Unemployed Not on file Not on file Not on file Last Filed Vital Signs Vital Sign Reading Time Taken Comments Blood Pressure 118/76 10/04/2020 8:57 AM EST Pulse 86 10/04/2020 8:57 AM EST Temperature 37 C (98.6 F) 10/04/2020 8:57 AM EST Respiratory Rate 18 10/04/2020 8:57 AM EST Oxygen Saturation - - Inhaled Oxygen Concentration - - Weight 90.4 kg (199 lb 3.2 oz) 10/04/2020 8:57 A M EST Height 160 cm (5' 3 ) 10/04/2020 8:57 AM EST Body Mass Index 35.29 10/04/2020 8:57 AM EST Plan of Treatment Health Maintenance Due Date Last Done Comments Anxiety Screening 1976 Dental Examination 1976 HPV Screening 1976 Hepatitis C Screening 1976 Pap + HPV 1976 Tobacco Screening 1976 HIV Screening 1991 Imm-Pneumococcal (2 of 2 - PCV) 05/29/2014 3 Breast Cancer Screening (Mammogram) 2016 Cervical Cancer Screening 11/05/2018 Pap Smear 11/05/2018 11/05/2015 (Magi robledo by Outside Provider) Retinopathy Screening 03/27/2019 03/27/2018 (Managed by Outside Provider) Imm-Hepatitis B (2 of 2 - Cp G 2-dose series) 11/01/2020 10/04/2020 Lipid Screening 12/08/2020 12/08/2019, 12/17/2017 Urine Albumin Creatinine Rat io Screening 12/08/2020 12/08/2019 Hemoglobin A1c 04/03/2021 10/04/2020, 0201/2020, 12/17/2017 CT Colonography 2021 Colonoscopy 2021 Colorectal Cancer Screening 2021 FIT/gFOBT 2021 Fecal DNA 2021 Flexible Sigmoidoscopy 2021 Diabetes Foot Exam 10/04/2021 10/04/2020 Hypertension Screening (#1) 10/04/2021 Serum Creatinine 10/04/2021 10/04/2020, , 12/08/2019, Additional history exists Depression Monitoring 09/26/2022 06/26/2022 , 07/06/2020, 12/08/2019 Annual Wellness (Adult): Indicated (All Coverage) 06/26/2023 06/26/2022, 12/08/2019 Relationship Safety Screening/Counseling 06/26/2023 06/26/2022, 11/28/2019 Alcohol and Drug Screen 11/05/2024 06/26/20 22, 05/20/2020, 12/08/2019, Additional history exists [id number] () 07/06/2025 11/17/2021, 04/26/2021, 04/05/2021 Imm-Influenza (#1) 2025 10/04/2020, 1 , 08/02/2017, Additional history exists Imm-DTaP/Tdap/Td (3 - Td or Tdap) 12/08/2029 020, 12/22/2008 Cervical Ablation/Cold-Knife Conization Discontinued Cervical Cryotherapy Discontinued Colposcopy Discontinued Endometrial Biopsy Discontinued Excision/Leep Discontinued HPV Genotyping Discontinued Vaginal Pap Discontinued Vulvoscopy Discontinued Goals Goal Patient Goal Type Associated Problems Recent Progress Patient-Stated? Author Diabetes: Health Management General No Ana Pitt RN Note: Patient will check and record blood sugar readings as ordered by PCP for the next 6 months. Patient will keep appointments with healthcare providers as scheduled for the next 6 months. CHW/CM will call patient, weekly/biweekly respectively, to remind of scheduled medical appointments, for the next year. Patient will take medications as prescribed by PCP for the next year. CHW/CM will call patient weekly/biweekly respectively to remind patient to take medication as prescribed. Diet and Exercise General Yes Ana Pitt RN Note: I will walk 10 minutes per day for 5 days per week, for the next 6 months. I will stretch 5 days per week for 15 minutes at a time, for the next 6 months. I will drink 3 bottles of flavored water per day, every day, for the next 6 months. CHW/CM will discuss physical activity and encourage patient during weekly/biweekly phone calls for the next 6 months. Transportation General Ana May RN Note: Patient will notify CHW/CM of any new appointments or referrals during weekly/biweekly follow ups, for the next year. CHW, when given provider information by patient, will complete request for PT-1 transportation for current providers and any new providers that patient has an appointment with for the next year. Patient will notify PT-1 of need for transportation to appointments at least 3 days prior to scheduled appointment, for the next year. Procedures Procedure Name Priority Date/Time Associated Diagnosis Comments COMPREHENSIVE METABOLIC PANEL Routine 10/04/2020 9:55 AM EST Anemia, unspecified type HEMOGLOBIN GLYCOSYLATED A1C Routine 10/04/2020 9:55 AM EST Chronic right-sided low back pain with right-sided sciatica LIPID PANEL Routine 12/08/2019 9:52 AM EST Routine general medical examination at a health care facility MICROALBUMIN/CREATININ E RATIO, URINE, RANDOM Routine 12/08/2019 9:51 AM EST Routine general medical examination at a health care facility Type 2 diabetes mellitus without complication, with long-term current use of insulin ([facility]) from Last 3 Months or Most Recently Relevant to Health Maintenance Results * (ABNORMAL) HEMOGLOBIN, GLYCOSYLATED (A1C) (10/04/2020 9:55 AM EST) GLYCATED HEMOGLOBIN A1C 6.8(H) <6.5 % [facility] ESTIMATED AVERAGE GLUCOSE 148 mg/dL [facility] 10/04/2020 9:55 AM EST 10/04/2020 11:03 AM EST Narrative [employer] - 10/04/2020 1:55 PM EST [employer], a member of [address] [address] Slp - Sarah Benites MD PT ID [id number] ORD# [id number] us Nyasia Mendoza [facility] - BLOOD DRAW Final Re sult Performing Organization Address City/[facility]/[place] [address], [place] [phone] * (ABNORMAL) COMPRE METAB PANEL (10/04/2020 9:55 AM EST) GLUCOSE 127(H) 70 - 100 mg/dL [facility] Comment:Reference range appl icable to fasting specimens only BUN 16 5 - 25 mg/dL [facility] CREAT 0.86 0.5 - 1.1 mg/dL [facility] GLOMERULAR FILTRATION RATE > 60 [facility] Comment: If patient is -[place], multiply result by 1.21 Chronic Kidney Disease: < 60 ml/min/1.73 square meters Kidney Failure: < 15 ml/min/1.73 square meters SODIUM 138 135 - 145 mEq/L [facility] POTASSIUM 4.2 3.5 - 5.5 mmol/L [facility] CHLORIDE 107 96 - 110 mmol/L [facility] CO2 25 21 - 32 mmol/L [facility] ANION GAP 6 3 - 11 [facility] CALCIUM 9.5 8.5 - 10.5 mg/dL [facility] ALBUMIN 3.8 3.2 - 5.0 G/dL [facility] 10/04/2020 9:55 AM EST 10/04/2020 11:03 AM EST Narrative [facility] - 10/04/2020 1:11 PM EST [employer], [place] [address] Slp - Sarah Benites MD PT ID [id number] ORD# [id number] us Nyasia Mendoza [facility] - BLOOD DRAW Final Re sult [facility] [address] [place] [address], * LIPID PANEL (12/08/2019 9:52 AM EST) CHOLESTEROL 175 0 - 200 mg/dL [facility] TRIGLYCERIDES 92 0 - 150 mg/dL [facility] HDL CHOLESTEROL 58 >40 mg/dL [facility] LDL CALCULATED 99 0 - 100 mg/dL [facility] TC-HDLC RATIO 3.0 0 - 4.4 mg/dL [facility] Blood specimen (specimen) Blood / Unknown 12/08/2019 9:52 AM EST 12/08/2019 11:27 AM EST Narrative [facility] - 12/08/2019 4:52 PM EST [employer], a member of [address] [address] Slp - Sarah Benites MD PT ID [id number] ORD# [id number] Nyasia Mendoza [facility] - BLOOD DRAW Final Re sult [address] [address], * MICROALBUMIN/CREATININE RATIO, URINE, RANDOM (12/08/2019 9:51 AM EST) CREATININE, RANDOM URINE 278 mg/dL [facility] MICROALBUMIN, RANDOM 19.5 0.0 - 29.0 mg/L [facility] MICROALB/CRE RATIO RANDOM 7.0 0.0 - 30.0 mg/G [facility] Urine specimen (specimen) Urine specimen / Unknown 12/08/2019 9:51 AM EST 12/08/2019 11:27 AM EST Narrative [facility] - 12/08/2019 5:00 PM EST [employer], a member of [address] [address] Slp - Sarah Benites MD PT ID [id number] ORD# [id number] [facility] URINE AMBULATORY Edit ed Result - Final [facility] [address] [place] [address], from Last 3 Months or Most Recently Relevant to Health Maintenance Insurance [facility] Care Teams Lever Tender Relationship Specialty Start Date End Date Nyasia Mendoza FNP [address] [place] [address] PCP - General Family Medicine, H[employer] 12/06/16
--- OUTSIDE RECORDS SUMMARY | 2025-08-03 10:15 | XMS_ITS | Clinical Summary ---
Author Organization [facility] Address [address] [place] [address] Care Team Providers Care Log Hauler Name Role Phone Nyasia Castellano NP Primary Care Provider [phone]- [phone] Social History Tobacco Use Types Packs/Day Years Used Date Smoking Tobacco: Never Assessed Sex and Gender Information Value Date Recorded Sex Assigned at Not on file Gender Identity Not on file Sexual Orientation Not on file Plan of Treatment Health Maintenance Due Date Last Done Comments Hepatitis C Screening 1976 COVID-19 Vaccine (#1) 02/27/1977 Depression Screening 1988 Preventative Health Evaluation 1994 Cervical Cancer Screening (Pap Smear) 1997 Hepatitis B Vaccines (2 of 2 - CpG 2-dose series) 11/01/2020 10/04/2020 Colon Cancer Screening (Colonoscopy) 2021 Influenza Vaccine (#1) 2025 0, 08/02/2017, 09/24/2008 DTap / Tdap / Td (3 - Td or Tdap) 12/08/2029 12/08/2019, 12/22/2008 Pneumococcal Vaccine Aged Out 05/29/2013 No long er eligible based on patient's age to complete this topic RSV Ped < 20 months Aged Out No longe r eligible based on patient's age to complete this topic Care Teams Log Hauler Relationship Specialty Start Date End Date Nyasia Castellano NP [address] [place] [address] PCP - General Nurse Practitioner 05/26/21
--- OUTSIDE RECORDS SUMMARY | 2025-08-03 10:15 | XMS_ITS | Clinical Summary ---
Author Organization [facility], Address [address] [place] [address] Phone Care Team Providers Care Boat Operator Name Role Phone Unavailable Primary Care Provider Unavailabl e Allergies Active Allergy Reactions Criticality Noted Date Comments Cat Dander Hives 10/22/2017 Ciprofloxacin 04/07/2021 HIVES/ REDNESS AND DIFFICULTY BREATHING Cortisone Shortness of breath High 10/22/2017 Penicillins Hives 10/22/2017 Medications metFORMIN XR (GLUCOPHAGE-XR) 750 MG 24 hr tablet Take 750 mg by mouth 1 (one) time each day with dinner Do not crush, chew, or split. Active traZODone (DESYREL) 50 MG tablet Take 50 mg by mouth every night Active pregabalin (LYRICA) 75 MG capsule Take 75 mg by mouth 2 (two) times a day Active omeprazole (PriLOSEC) [address] capsule Take 20 mg by mouth 1 (one) time each day Do not crush or chew. Active Social History Tobacco Use Types Packs/Day Years Used Date Smoking Tobacco: Never Assessed Comments Unknown Sex and Gender Information Value Date Recorded Sex Assigned at Not on file Legal Sex Female 3:26 PM EDT Gender Identity Not on file Sexual Orientation Not on file Last Filed Vital Signs Vital Sign Reading Time Taken Comments Blood Pressure 128/85 04/13/2021 1:14 PM EDT Pulse 88 04/13/2021 1:14 PM EDT Temperature 36.7 C (98.1 F) 04/13/2021 1:14 PM EDT Respiratory Rate - - Oxygen Saturation 99% 04/13/2021 1:14 PM EDT Inhaled Oxygen Concentration - - Weight 79.4 kg (175 lb) 04/13/2021 1:14 PM EDT Height 160 cm (5' 3 ) 04/13/2021 1:14 PM EDT Body Mass Index 31 04/13/2021 1:14 PM EDT Plan of Treatment Health Maintenance Due Date Last Done Comments Hepatitis B Vaccine (1 of 3 - 19+ 3-dose series) 1995 10/04/2020 Diabetes: Hemoglobin A1C 04/12/2021 10/04/2020 Diabetes: Ophthalmology Exam 04/12/2021 Diabetes: Pedal Pulse Checked 04/12/2021 Diabetes: Sensory Foot Exam 04/12/2021 Diabetes: Visual Foot Exam 04/12/2021 Influenza Vaccine (#1) 2025 0, 09/24/2008 Pneumococcal Vaccine: Peds ( 0 to 5 Years) and At-Risk Patients (6 to 49 Years) Aged Out 05/29/2013 No longer eligi ble based on patient's age to complete this topic Insurance Medicaid
== END 2025-08-03 10:13 | disposition home or self-care (01) ==
LOC: HO.HOS 09:28
PROVIDERS: PCP Internal Medicine; Visit Provider Physician Assistant
DX: M70.61 Trochanteric bursitis, right hip (principal)
CPT/HCPCS: 99203; G2211

== ENCOUNTER → 2025-08-03 09:32 | Outpatient (BNV) | payer OTHER, SELFPAY | PROVIDERS: Visit Provider Radiology Diagnostic Radiology | DX: M25.551 Pain in right hip (principal) | CPT/HCPCS: 73502 ==

== ENCOUNTER 2025-08-10 10:58 | Outpatient (AMB) | payer OTHER, SELFPAY ==
--- NOTE | 2025-08-10 10:59 | A.SPINEOV_ITS ---
Vital Signs 08/10/25 11:04 Height 5 ft 3 in Weight 205 lb BMI 36.3 Intake Visit Reasons: disc bulge at L3-4 Intake Note: Ms. Rubio is here today c/o low back pain that goes into the legs. All Around Gear Machine Operator Required: No Allergies ciprofloxacin (From CIPRO) Allergy (Unknown, Verified 08/10/25 11:05) HIVES cortisone (CORTISONE) Allergy (Unknown, Verified 08/10/25 11:05) CHEST TIGHTENS penicillin G Allergy (Unknown, Verified 08/10/25 11:05) Unknown Penicillins (PCN) Allergy (Unknown, Verified 08/10/25 11:05) HIVES Physical Exam Vital Signs: BMI result Body Mass Index 36.3 Assessment & Plan Assessment & Plan (1) Failed back syndrome of lumbar spine: Code(s): M96.1 - Postlaminectomy syndrome, not elsewhere classified Category: Medical Plan Dear colleague, Thank you for referring Estephanie to our office today. She is a pleasant 49-year-old female who comes in today for evaluation of low back pain and numbness/weakness of her right lower extremity. She reports this has been ongoing ever since her L4-5 lumbar fusion which was completed in 2020. Unfortunately, since her surgery she has been in fairly constant pain with only mild symptom relief directly after surgery. She states that she went in for a postoperative appointment and it sounds like a nurse attempted to strength test (or gentle ROM?) her legs. Ever since then she has had horrible low back pain and numbness / weakness of her right lower extremity. When describing the numbness she states that it starts near her right posterior buttocks and extends down the lateral aspect of her right leg terminating near the knee. She has attempted several different types of interventions for this including massage therapy, physical therapy, and multiple different medications over the years. Unfortunately, the bulk of the medications she has tried have only provided modest relief. She is currently attempting a course of Tylenol and celecoxib, and reports this only reduces her pain to about 8/10 constant. She reports that her pain is present all throughout the day despite movements/activity. In his now to the point where she essentially is lying in bed around the couch all day and unable to engage in meaningful activities. PMH: Type 2 diabetes last A1c reported as 8. Fibromyalgia, GERD, hyperlipidemia. History L4-[address] completed [address] Storey in 2020. Social hx: The patient does not smoke, reports no substance use. Medications: Metformin, omeprazole, celecoxib, rosuvastatin, amitriptyline, Tylenol. Allergies: Penicillin, cortisone, ciprofloxacin. Physical exam: The patient has about 4/5 strength with right-sided knee extension/flexion, and about 4/5 strength with right-sided iliopsoas testing. Her dorsiflexion on the right initially seemed weaker than the left but she was able to fully engage it after repeating instructions. Her left lower extremity strength is 5/5. She has some hypoesthesia to light touch over the lateral aspect of her right thigh, compared to the left. The rest of his sensation is grossly intact. She ambulates fairly well but does so slowly favoring the left- hand side. I would not expressly refer to her gait as antalgic. She uses no assistive devices to ambulate. She is able to rise from a seated position without much difficulty and gets up onto the examination table without issue. (-) bilateral straight leg raise, (-) Christensen's, (-) clonus. Imaging review: MRI of the lumbar spine completed at outside hospital with no available radiology report shows evidence of previous fusion at L4-5. There is a very slight posterior disc bulge at L3-4, but it does not appear to be compressing any of the neural elements. Impression: Estephanie is a pleasant 49-year-old female comes in today for evaluation of chronic low back pain and right lower extremity numbness/weakness ever since her lumbar spine fusion surgery. She feels that she is now in more pain than she was prior to her fusion. It sounds like there may have been some kind of activation of autoimmune disorder, or unintentional nerve damage sustained during the surgery, causing her to be in pain out of proportion to MRI findings. When reviewing her MRI I see no meaningful compression of the thecal sac or exiting nerve roots. I do not believe that there is anything from a neurosurgical perspective that we could offer in terms of surgical intervention to help relieve her symptoms. I would like to have her referred to our colleague Dr. Greer at [facility] to discuss potential usp pain management such as SCS or nerve ablation therapy. I do not know what her specific reaction to cortisone was to warrant her disclosure of a cortisone allergy, but she did say that she cannot get lumbar spine injections due to this allergy. Thank you for allowing us to care for your patient. The total time spent with this visit with this patient was 45 minutes reviewing history, physical exam, MRI imaging review, and implementation of treatment plan or further diagnostic testing Roderick Perez MD,PhD [facility] Orders: Referrals Pain Management Referral M96.1 - Postlaminectomy syndrome, not elsewhere classified Coding Level of Care Code New Pt Level 4 (31734) Diagnoses Failed back syndrome of lumbar spine M96.1
[2025-08-10 11:04] VITALS: BMI 36.3
--- OUTSIDE RECORDS SUMMARY | 2025-08-10 13:21 | XMS_ITS | Clinical Summary ---
Author Organization [facility] Address [address] [place] [address] Care Team Providers Care Railroad Car Painter Name Role Phone Nyasia Castellano NP Primary Care Provider [phone]- [phone] Social History Tobacco Use Types Packs/Day Years [...] age to complete this topic Care Teams Railroad Car Painter Relationship Specialty Start Date End Date Nyasia Castellano NP [address] [place] [address] PCP - General Nurse Practitioner 05/26/21
--- OUTSIDE RECORDS SUMMARY | 2025-08-10 13:21 | XMS_ITS | Clinical Summary ---
Author Organization [facility] Address [address] [place] [address] Care Team Providers Care Distributing Clerk Name Role Phone Kelly Nyasia Patel [facility] Primary Care Provider [phone] Source Comments PLEASE NOTE, if this patient [...] knee 0 Overview (11/30/2021): 11/12/20 Eval at [facility]. Recommends PT. Given brace. F/u PRN. Fibromyalgia 03/16/2020 Overview (03/02/2021): 04/27/[address] Osei at [facility]. Lab work sent. Continue gabapentin, f/u 2 weeks. 05/12/[address] Osei at [facility]. Recommends continue current medications. Elevated ESR liekly due to anemia. F/u 2 months for labs and /fu. Sprain of right knee 07/06/2018 Overview (01/18/2021): 11/13/2019 Eval at [facility] Ortho. Ordered MRI of knee. H/O complete [...] sleeve gastrectomy 12/11/2017 Overview (12/11/2017): Admitted 11/26/17-11/30/17 [facility], Dr Adkins. Post/op care complicated by intermittent fevers. Given tamiflu for + influenza A. Chronic low back pain s/p discectomy L4-L5 11/12 Overview (11/30/2021): S/p discectomy 2014, R>L, reports chronic disability since her surgery in 2014. Previously took gabapentin Surgery done at [facility] ? Dr Storey MRI 01/31/21 at [facility] shows IMPRESSION: 1. Stable annular fissure at L4-L5 and stable posterior annular bulge with small central protrusion. 2. Mild enhancement in the posterior annulus. 3. No central canal stenosis or neural foraminal narrowing. 03/16/21 F/u Neurosugery, discussed posterior vs anterior approach. Pt to meet with Dr Lezama. 05/17/21 underwent anterior discectomy/fusion L4-L5 at [facility], Dr Lezama. Left elbow pain 11/12/2017 Overview (11/12/2017): Per previous PCP S/P appendectomy 11/12/2017 Bilateral carpal tunnel syndrome 11/12/2017 Overview (11/12/2017): S/p release Depression with anxiety 11/12/2017 History of Helicobacter pylori infection 018 Insomnia 11/12/2017 Morbid Obesity 11/12/2017 Overview (11/21/2017): 11/12/17 Pre-Op viist with Dr Adkins at [facility] Gen Surg. Plan for gastric sleeve surgery Steatosis of liver 11/12/2017 CONCHITA (obstructive sleep apnea) 11/12/2017 Overview (11/12/2017): On CPAP PTSD (post-traumatic stress disorder) 11/12/2017 Overview (11/14/2017): Seen by [facility] at [facility]. For PTSD and Depressive D/o, Prescribed Trazodone 100 mg qhs, Klonopin 1 mg TID, Ambien [address] Markus Michael Type 2 diabetes mellitus wit hout complication, with long-term current use of insulin 10/22/2017 Overview (11/12/2017): Followed by Dr Grossman, [facility] Endocrine Managed on Lantus 40, metformin [...] 06/26/20 22, 05/20/2020, 12/08/2019, Additional history exists [id number] ( season) 2025 11/17/2021, 04/26/2021, 04/05/2021 Imm-Influenza [...] complication, with long-term current use of insulin ([facility]) from Last 3 Months or Most Recently Relevant to Health Maintenance Results * (ABNORMAL) HEMOGLOBIN, GLYCOSYLATED (A1C) (10/04/2020 9:55 AM EST) GLYCATED HEMOGLOBIN A1C 6.8(H) <6.5 % [facility] ESTIMATED AVERAGE GLUCOSE 148 mg/dL [facility] 10/04/2020 9:55 AM EST 10/04/2020 11:03 AM EST N[facility]ative [facility] 10/04/2020 1:55 PM EST [employer], [place] [address] Contract Writer - Sarah Benites MD PT ID [id number] ORD# [id number] Nyasia Mendoza [employer] [facility] - BLOOD DRAW Final Re sult [facility] [address] [place] [address], * (ABNORMAL) COMPRE METAB PANEL (10/04/2020 9:55 AM EST) GLUCOSE 127(H) 70 - 100 mg/dL [facility] Comment:Reference range appl icable to fasting specimens only BUN 16 5 - 25 mg/dL [facility] CREAT 0.86 0.5 - 1.1 mg/dL [facility] GLOMERULAR FILTRATION RATE > [address] [facility] Comment: If patient is -[place]icarag[place], multiply result by 1.21 Chronic Kidney Disease: < 60 ml/min/1.73 square meters Kidney Failure: < 15 ml/min/1.73 square meters SODIUM 138 135 - 145 mEq/L [facility] POTASSIUM 4.2 3.5 - 5.5 mmol/L [facility] CHLORIDE 107 96 - 110 mmol/L [facility] CO2 25 21 - 32 mmol/L [facility] ANION GAP 6 3 - [address] [facility] CALCIUM 9.5 8.5 - 10.5 mg/dL [facility] ALBUMIN 3.8 3.2 - 5.0 G/dL [facility] 10/04/2020 9:55 AM EST 10/04/2020 11:03 AM EST Narrative [facility] - 10/04/2020 1:11 PM EST [facility] [employer], a member of [address] [address] Contract Writer - Sarah Benites MD PT ID [id number] ORD# [id number] Nyasia Simeoninda [employer] [facility] - BLOOD DRAW Final Re sult [facility] [address] [place] [address], * LIPID PANEL (12/08/2019 9:52 AM EST) CHOLESTEROL 175 0 - 200 mg/dL [facility] TRIGLYCERIDES 92 0 - 150 mg/dL [facility] HDL CHOLESTEROL 58 >40 mg/dL [facility] LDL CALCULATED 99 0 - 100 mg/dL [facility] TC-HDLC RATIO 3.0 0 - 4.4 mg/dL [facility] Blood specimen (specimen) Blood / Unknown 12/08/2019 9:52 AM EST 12/08/2019 11:27 AM EST Narrative [facility] 12/08/2019 4:52 PM EST [employer] [address] Contract Writer - Sarah Benites MD PT ID [id number] ORD# [id number] Nyasia STORMP [facility] - BLOOD [place]RAW [place] [address], * MICROALBUMIN/CREATININE RATIO, URINE, RANDOM (12/08/2019 9:51 AM EST) CREATININE, RANDOM URINE 278 mg/dL [facility] MICROALBUMIN, RANDOM 19.5 0.0 - 29.0 mg/L [facility] MICROALB/CRE RATIO RANDOM 7.0 0.0 - 30.0 mg/G [facility] Urine specimen (specimen) Urine specimen / Unknown 12/08/2019 9:51 AM EST 12/08/2019 11:27 AM EST Narrative [facility] [place] 12/08/2019 5:00 PM EST [employer] [address] Contract Writer - Sarah Benites MD PT ID [id number] ORD# [id number] Nyasia [facility] URINE AMBULATORY Edit ed Result - Final [facility] [address] [place] [address], from Last 3 Months or Most Recently Relevant to Health Maintenance Insurance [facility] Care Teams Distributing Clerk Relationship Specialty Start Date End Date Nyasia Mendoza FNP [address] [place] [address] PCP - General Family Medicine, [employer] 12/06/16
--- OUTSIDE RECORDS SUMMARY | 2025-08-10 13:21 | XMS_ITS | Clinical Summary ---
Author Organization [facility] Address [address] [place] [address] Phone Care Team Providers Care Controls Designer Name Role Phone Physician, No Pcp Primary [...] - 06/29/2025 11:59 PM EDT Hospital Encounter [facility] Xray [address] [place] [address] Right hip pain Discharge Disposition: Home or Self Care 05/18/2025 4:30 PM EDT Office Visit Neurosurgery [place] [address] [place] [address] Tracey Storey MD Right hip pain (Primary Dx); Intractable back pain from Last 3 Months Surgical History Surgery Date Site/Laterality Comments KNEE ARTHROPLASTY Bilateral PROCEDURE: MO ARTHRS KNEE ABRASION ARTHRP/DOCTOR OF RADIOLOGY DRLG/MICROFX CARPAL TUNNEL RELEASE Bilateral PROCEDURE: MO NEUROPLASTY &/TRANSPOS MEDIAN NRV CARPAL TUNNE APPENDECTOMY PROCEDURE: MO APPENDECTOMY SECTION PROCEDURE: HISTORICAL DELIVERY ELBOW SURGERY Bilateral PROCEDURE: HISTORICAL ELBOW SURGERY SHOULDER SURGERY Bilateral PROCEDURE: HISTORICAL SHOULDER SURGERY LUMBAR FUSION 4 years ago Alif BARIATRIC SURGERY approx Medical History Medical History Date Comments Diabetes mellitus type 2, co ntrolled, with complications (CMS/HCC V24, CMS/HCC V28) DX:Diabetes mellitus type 2, controlled, with complications ([facility]) Depressive disorder DX:Depressiv e disorder Anxiety state [...] of the pelvis and right hip. Code 00135 -------- FINAL REPORT -------- Dictated By: Sammy Young Dictated Date: 06/29/2025 09:21 ET Assigned Physician: Sammy Young Reviewed and Electronically Signed By: Sammy Young Signed Date: 06/29/2025 09:23 ET Workstation ID: [id number] Transcribed By: Self Edit Transcribed Date: 06/29/2025 [...] of the pelvis and right hip. Code 52856 -------- FINAL REPORT -------- Dictated By: Sammy Young Dictated Date: 06/29/2025 09:21 ET Assigned Physician: Sammy Young Reviewed and Electronically Signed By: Sammy Young Signed Date: 06/29/2025 09:23 ET Workstation ID: [id number] Transcribed By: Self Edit Transcribed Date: 06/29/2025 09:21 ET Tracey Storey MD IMG XR PROCEDURES Final Result * (ABNORMAL) Hemoglobin A1c (03/22/2025 9:10 PM EDT) Hemoglobin A1C 8.3(H) <6.5 % LAB CHEMISTRY METHOD 03/23/2025 1:[address] [facility] Mean Bld Glu Estim. 192 mg/dL LAB CHEMISTRY METHOD 03/23/2025 1:[address] [facility] Blood Venous blood specimen / Unknown Venipuncture / Unknown 03/22/2025 9:10 PM EDT 03/22/2025 9:39 PM EDT us Eva BENNETT LAB BLOOD ORDERABLES Final R esult [facility] [address] [place] [address], [place] [phone] * (ABNORMAL) Comprehensive metabolic panel (03/22/2025 9:10 PM EDT) Sodium 136 133 - 145 mmol/L LAB CHEMISTRY METHOD 03/22/2025 10:[address] [facility] Potassium 4.3 3.5 - 5.5 mmol/L LAB CHEMISTRY METHOD 03/22/2025 10:[address] [facility] Chloride 101 96 - 110 mmol/L LAB CHEMISTRY METHOD 03/22/2025 10:[address] [facility] CO2 30 21 - 32 mmol/L LAB CHEMISTRY METHOD 03/22/2025 10:[address] [facility] Anion Gap 5 3 - 11 LAB CHEMISTRY METHOD 03/22/2025 10:[address] [facility] Glucose 179(H) 70 - 100 mg/dL LAB CHEMISTRY METHOD 03/22/2025 10:[address] [facility] BUN 13 5 - 25 mg/dL LAB CHEMISTRY METHOD 03/22/2025 10:[address] [facility] Creatinine 0.76 0.50 - 1.10 mg/dL LAB CHEMISTRY METHOD 03/22/2025 10:[address] [facility] eGFR 97 >=60 mL/min/1. 73m2 LAB CHEMISTRY METHOD 03/22/2025 10:[address] [facility] Comment:Calculation based on the Chronic Kidney Disease Epidemiology Collaboration (CKD-EPI) equation refit without adjustment for race. BUN/Creatinine Ratio 17.1 LAB CHEMISTRY METHOD 03/22/2025 10:[address] [facility] Calcium 9.1 8.5 - 10.5 mg/dL LAB CHEMISTRY METHOD 03/22/2025 10:[address] [facility] AST (SGOT) 35 10 - 42 unit/L LAB CHEMISTRY METHOD 03/22/2025 10:[address] [facility] ALT (SGPT) 31 10 - 60 unit/L LAB CHEMISTRY METHOD 03/22/2025 10:[address] [facility] Alkaline Phosphatase 79 42 - 121 unit/L LAB CHEMISTRY METHOD 03/22/2025 10:[address] [facility] Total Protein 7.7 6.0 - 8.0 g/dL LAB CHEMISTRY METHOD 03/22/2025 10:[address] [facility] Albumin 3.9 3.2 - 5.0 g/dL LAB CHEMISTRY METHOD 03/22/2025 10:[address] [facility] Total Bilirubin 0.4 0.0 - 1.4 mg/dL LAB CHEMISTRY METHOD 03/22/2025 10:[address] [facility] Blood Venous blood specimen / Unknown Venipuncture / Unknown 03/22/2025 9:10 PM EDT 03/22/2025 9:39 PM EDT us Kimmy BENNETT LAB BLOOD ORDERABLES Final Result [facility] [address] [place] [address], from Last 3 Months or Most Recently [...] currently active code status orders. Care Teams Controls Designer Relationship Specialty Start Date End Date Physician, No Pcp PCP - General 06/29/25 Bo Carlin CNP Primary Care Provider 05/18/25
--- OUTSIDE RECORDS SUMMARY | 2025-08-10 13:21 | XMS_ITS | Clinical Summary ---
Author Organization [facility], Address [address] [place] [address] Phone Care Team Providers Care National Account Director Name Role Phone Unavailable Primary Care Provider [...]
== END 2025-08-10 11:25 | disposition home or self-care (01) ==
LOC: HO.HNS 10:59
PROVIDERS: Referring Provider Physician Assistant; Visit Provider Physician Assistant
DX: M96.1 Postlaminectomy syndrome, not elsewhere classified (principal)
CPT/HCPCS: 99204

== ENCOUNTER → 2025-08-10 10:58 | Outpatient (BNVA) | payer OTHER, SELFPAY | PROVIDERS: Referring Provider Physician Assistant; Visit Provider Physician Assistant | DX: M96.1 Postlaminectomy syndrome, not elsewhere classified (principal); M51.369 Other intervertebral disc degeneration, lumbar region without mention of lumbar back pain or lower extremity pain | CPT/HCPCS: 99202 ==

== ENCOUNTER 2025-09-02 14:10 | Outpatient (AMB) | payer OTHER, SELFPAY ==
--- NOTE | 2025-09-02 14:31 | A.SPINEOV_ITS ---
Intake Visit Reasons: F/u after Pain Management Intake Note: Ms. Rubio is here today to F/u after Pain management Central Communications Specialist Required: No Allergies ciprofloxacin (From CIPRO) Allergy (Unknown, Verified 08/10/25 11:05) HIVES cortisone (CORTISONE) Allergy (Unknown, Verified 08/10/25 11:05) CHEST TIGHTENS penicillin G Allergy (Unknown, Verified 08/10/25 11:05) Unknown Penicillins (PCN) Allergy (Unknown, Verified 08/10/25 11:05) HIVES Assessment & Plan Assessment & Plan (1) Failed back syndrome of lumbar spine: Code(s): M96.1 - Postlaminectomy syndrome, not elsewhere classified Category: Medical Plan Estephanie is a pleasant 50-year-old female who made a follow up appt. today to once again discuss long-term management of her low back and leg pain. She reports that she was recently evaluated by Family Physiatry however they recommended that she have a spinal cord stimulator vs. other intermodal customer service management options. They do not place SCS implants. Therefore, the patient returns to discuss SCS trial / implant. We discussed this at length and I answered any questions that she had. I will refer her to our colleagues here at [facility] pain management for evaluation of SCS trial / implant. Roderick Perez MD,PhD [facility] Orders: Referrals Pain Management Referral M96.1 - Postlaminectomy syndrome, not elsewhere classified Coding Level of Care Code Global (98322) Diagnoses Failed back syndrome of lumbar spine M96.1
--- OUTSIDE RECORDS SUMMARY | 2025-09-02 18:16 | XMS_ITS | Clinical Summary ---
Author Organization [facility], Address [address] [place] [address] Phone Care Team Providers Care Hospice Care Consultant Name Role Phone Unavailable Primary Care Provider [...] 04/12/2021 Influenza Vaccine (#1) 2025 0, 09/24/2008 Colorectal Cancer Screening: Annual FOBT 2025 Colorectal Cancer Screening: Colonoscopy 2025 Colorectal Cancer Screening: Sigmoidoscopy 2025 Pneumococcal Vaccine: Peds ( 0 to 5 Years) and At-Risk Patients (6 to 49 Years) Aged Out 05/29/2013 No longer eligi ble based on patient's age to complete this topic Insurance [facility] Medicaid
--- OUTSIDE RECORDS SUMMARY | 2025-09-02 18:16 | XMS_ITS | Clinical Summary ---
Author Organization [facility] Address [address] [place] [address] Phone Care Team Providers Care Mannequin Coloring Artist Name Role Phone Physician, No Pcp Primary [...] - 06/29/2025 11:59 PM EDT Hospital Encounter [facility] Xray [address] [place] [address] Right hip pain Discharge Disposition: Home or Self Care from Last 3 Months Surgical History Surgery Date Site/Laterality Comments KNEE ARTHROPLASTY Bilateral PROCEDURE: CO ARTHRS KNEE ABRASION ARTHRP/METAL ROASTER DRLG/MICROFX CARPAL TUNNEL RELEASE Bilateral PROCEDURE: CO NEUROPLASTY &/TRANSPOS MEDIAN NRV CARPAL TUNNE APPENDECTOMY PROCEDURE: CO APPENDECTOMY SECTION PROCEDURE: HISTORICAL DELIVERY ELBOW SURGERY Bilateral PROCEDURE: HISTORICAL ELBOW SURGERY SHOULDER SURGERY Bilateral PROCEDURE: HISTORICAL SHOULDER SURGERY LUMBAR FUSION 4 years ago Alif BARIATRIC SURGERY approx Medical History Medical History Date Comments Diabetes mellitus type 2, co ntrolled, with complications (CMS/HCC V24, CMS/HCC V28) DX:Diabetes mellitus type 2, controlled, with complications (HCC) Depressive disorder DX:Depressiv e disorder Anxiety state [...] 1986 Diabetes: Annual Retina Eye Exam 1986 Cervical Cancer Screening: Pap Smear 1997 Hepatitis B Vaccines (2 of 2 - CpG 2-dose series) 11/01/2020 10/04/2020 HIV Screening 10/08/2022 Hepatitis C Screening 10/08/2022 Social Influencers of Health Screening 10/08/2022 Depression Screening 11/05/2024 Cholesterol Screening (Lipid Panel) 12/08/2024 12/08/2019, 12/08/2019, 12/17/2017 Diabetes: Annual Urine Albumin-Creatinine Ratio (uACR) 03/22/2025 12/08/2019 Diabetes: Blood Sugar Control Test (HGBA1C) 09/22/2025 03/22/2025, 10/04/2020 Hepatitis A Vaccines (2 of 2 - Risk 2-dose series) 02/01/2026 08/04/2025 Diabetes: Annual GFR (Glomerular Filtration Rate) 03/22/2026 [...] on patient's age to complete this topic Influenza Vaccine Completed 08/04/2025, , 10/04/2020, Additional history exists HIB Vaccines Aged Out No longer eligi [...] of the pelvis and right hip. Code 20776 -------- FINAL REPORT -------- Dictated By: Sammy Young Dictated Date: 06/29/2025 09:21 ET Assigned Physician: Sammy Young Reviewed and Electronically Signed By: Sammy Young Signed Date: 06/29/2025 09:23 ET Workstation ID: [id number] Transcribed By: Self Edit Transcribed Date: 06/29/2025 [...] of the pelvis and right hip. Code 86450 -------- FINAL REPORT -------- Dictated By: Sammy oYung Dictated Date: 06/29/2025 09:21 ET Assigned Physician: Sammy Young Reviewed and Electronically Signed By: Sammy Young Signed Date: 06/29/2025 09:23 ET Workstation ID: [id number] Transcribed By: Self Edit Transcribed Date: 06/29/2025 09:21 ET us Tracey Storey MD IMG XR PROCEDURES Final Result * (ABNORMAL) Hemoglobin A1c (03/22/2025 9:10 PM EDT) [facility] Hemoglobin A1C 8.3(H) <6.5 % LAB CHEMISTRY METHOD 03/23/2025 1:53 PM EDT [facility] Mean Bld Glu Estim. 192 mg/dL LAB CHEMISTRY METHOD 03/23/2025 1:53 PM EDT [facility] Blood Venous blood specimen / Unknown Venipuncture / Unknown 03/22/2025 9:10 PM EDT 03/22/2025 9:39 PM EDT us Eva BENNETT LAB BLOOD ORDERABLES Final R esult [facility] [address] [place] [address], * (ABNORMAL) Comprehensive metabolic panel (03/22/2025 9:10 PM EDT) Pathologist [facility] Sodium 136 133 - 145 mmol/L LAB CHEMISTRY METHOD 03/22/2025 10:04 PM EDT [facility] Potassium 4.3 3.5 - 5.5 mmol/L LAB CHEMISTRY METHOD 03/22/2025 10:04 PM EDT [facility] Chloride 101 96 - 110 [...] 42 unit/L LAB CHEMISTRY METHOD 03/22/2025 10:04 [facility] ALT (SGPT) 31 10 - 60 unit/L LAB CHEMISTRY METHOD 03/22/2025 10:04 PM [facility] Alkaline Phosphatase 79 42 - 121 unit/L LAB CHEMISTRY METHOD 03/22/2025 10:04 PM [facility] Total Protein 7.7 6.0 - 8.0 g/dL LAB CHEMISTRY METHOD 03/22/2025 10:04 PM [facility] Albumin 3.9 3.2 - 5.0 g/dL LAB CHEMISTRY METHOD 03/22/2025 10:04 PM EDT [facility] Total Bilirubin 0.4 0.0 - 1.4 mg/dL LAB CHEMISTRY METHOD 03/22/2025 10:04 PM EDT [facility] Blood Venous blood specimen / Unknown Venipuncture / Unknown 03/22/2025 9:10 PM EDT 03/22/2025 9:39 PM EDT us Kimmy BENNETT LAB BLOOD ORDERABLES Final Result [facility] [address] [place] [address], from Last 3 Months or Most Recently Relevant to Health Maintenance Insurance [facility] MEDICAID ADVANTAGE Advance Directives * Full Code [...] currently active code status orders. Care Teams Mannequin Coloring Artist Relationship Specialty Start Date End Date Physician, No Pcp PCP - General 06/29/25 Bo Carlin CNP Primary Care Provider 05/18/25
--- OUTSIDE RECORDS SUMMARY | 2025-09-02 18:16 | XMS_ITS | Clinical Summary ---
Author Organization [facility] Address [address] [place] [address] Care Team Providers Care Drapery Hemmer Automatic Name Role Phone Nyasia Castellano NP Primary Care Provider [phone]- [phone] Social History Tobacco Use Types Packs/Day Years [...] age to complete this topic Care Teams Drapery Hemmer Automatic Relationship Specialty Start Date End Date Nyasia Castellano NP [address] [place] [address] PCP - General Nurse Practitioner 05/26/21
--- OUTSIDE RECORDS SUMMARY | 2025-09-02 18:16 | XMS_ITS | Clinical Summary ---
Author Organization [facility] Address [address] [place] [address] Care Team Providers Care Director Script Name Role Phone Kelly Nyasia Patel [facility] Primary Care Provider [phone] Source Comments PLEASE NOTE, if this patient [...] knee 0 Overview (11/30/2021): 11/12/20 Eval at [facility]. Recommends PT. Given brace. F/u PRN. Fibromyalgia 03/16/2020 Overview (03/02/2021): 04/27/[address] Osei at [facility]. Lab work sent. Continue gabapentin, f/u 2 weeks. 05/12/[address] Osei at [facility]. Recommends continue current medications. Elevated [...] sleeve gastrectomy 12/11/2017 Overview (12/11/2017): Admitted 11/26/17-11/30/17 [facility], Dr Adkins. Post/op care complicated by intermittent fevers. Given tamiflu for + influenza A. Chronic low back pain s/p discectomy L4-L5 11/12 Overview (11/30/2021): S/p discectomy 2014, R>L, reports chronic disability since her surgery in 2014. Previously took gabapentin Surgery done at [facility] ? Dr Storey MRI 01/31/21 at [facility] shows IMPRESSION: 1. Stable annular fissure at L4-L5 and stable posterior annular bulge with small central protrusion. 2. Mild enhancement in the posterior annulus. 3. No central canal stenosis or neural foraminal narrowing. 03/16/21 F/u Neurosugery, discussed posterior vs anterior approach. Pt to meet with Dr Lezama. 05/17/21 underwent anterior discectomy/fusion L4-L5 at [facility], Dr Lezama. Left elbow pain 11/12/2017 Overview (11/12/2017): Per previous PCP S/P appendectomy 11/12/2017 Bilateral carpal tunnel syndrome 11/12/2017 Overview (11/12/2017): S/p release Depression with anxiety 11/12/2017 History of Helicobacter pylori infection 018 Insomnia 11/12/2017 Morbid Obesity 11/12/2017 Overview (11/21/2017): 11/12/17 Pre-Op viist with Dr Adkins at [facility] Gen Surg. Plan for gastric sleeve surgery Steatosis of liver 11/12/2017 CONCHITA (obstructive sleep apnea) 11/12/2017 Overview (11/12/2017): On CPAP PTSD (post-traumatic stress disorder) 11/12/2017 Overview (11/14/2017): [place] [facility] [place] and Depressive D/o, Prescribed Trazodone 100 mg qhs, Klonopin 1 mg TID, Ambien [address] Markus Michael Type 2 diabetes mellitus wit hout complication, with long-term current use of insulin 10/22/2017 Overview (11/12/2017): Followed by Dr Grossman, [facility] Endocrine Managed on Lantus 40, metformin [...] Screening 1976 Dental Examination 1976 HPV Screening (self-collect) 1976 HPV Screening 1976 Hepatitis C Screening 1976 Pap + HPV 1976 Tobacco Screening 1976 HIV Screening 1991 Imm-Pneumococcal (2 of 2 - PCV) 05/29/2014 3 Breast Cancer Screening (Mammogram) 2016 Cervical Cancer Screening 11/05/2018 Pap Smear 11/05/2018 11/05/2015 (Magi robleod by Outside Provider) Retinopathy Screening 03/27/2019 03/27/2018 [...] 06/26/20 22, 05/20/2020, 12/08/2019, Additional history exists [id number] ( season) 2025 11/17/2021, 04/26/2021, 04/05/2021 Imm-Influenza (#1) 2025 10/04/2020, 1 , 08/02/2017, Additional history exists Imm-DTaP/Tdap/Td (3 - Td or Tdap) 12/08/2029 020, 12/22/2008 Cervical Ablation/Cold-Knife Conization Discontinued Cervical Cryotherapy Discontinued Colposcopy Discontinued Excision/Leep Discontinued HPV Genotyping Discontinued Vaginal [...] complication, with long-term current use of insulin ([facility]) from Last 3 Months or Most Recently Relevant to Health Maintenance Results * (ABNORMAL) HEMOGLOBIN, GLYCOSYLATED (A1C) (10/04/2020 9:55 AM EST) GLYCATED HEMOGLOBIN A1C 6.8(H) <6.5 % [facility] ESTIMATED AVERAGE GLUCOSE 148 mg/dL [facility] 10/04/2020 9:55 AM EST 10/04/2020 11:03 AM EST Narrative [facility] - 10/04/2020 1:55 PM EST [employer], [place] [address] Diagnostic Imaging Manager - Sarah Benites MD PT ID [id number] ORD# [id number] Mollytonja Simeoninda BUSINESS ANALYST PROJECT MANAGER LAB - BLOOD DRAW Final Re sult [facility] [address] [place] [address], [place] [phone] * (ABNORMAL) COMPRE METAB PANEL (10/04/2020 9:55 AM EST) GLUCOSE 127(H) 70 - 100 mg/dL [facility] Comment:Reference range appl icable to fasting specimens only BUN 16 5 - 25 mg/dL [facility] CREAT 0.86 0.5 - 1.1 mg/dL [facility] GLOMERULAR FILTRATION RATE > 60 [facility] Comment: If patient is -Luxembourger, multiply result by 1.21 Chronic Kidney Disease: < 60 ml/min/1.73 square meters Kidney Failure: < 15 ml/min/1.73 square meters SODIUM 138 135 - 145 mEq/L [facility] POTASSIUM 4.2 3.5 - 5.5 mmol/L [facility] CHLORIDE 107 96 - 110 mmol/L [facility] CO2 25 21 - 32 mmol/L [facility] ANION GAP 6 3 - 11 [facility] CALCIUM 9.5 8.5 - 10.5 mg/dL [facility] ALBUMIN 3.8 3.2 - 5.0 G/dL [facility] 10/04/2020 9:55 AM EST 10/04/2020 11:03 AM EST Narrative [facility] - 10/04/2020 1:11 PM EST [employer], a member of [address] [address] Diagnostic Imaging Manager - Sarah Benites MD PT ID [id number] ORD# [id number] Molly Kelly BUSINESS ANALYST PROJECT MANAGER LAB - BLOOD DRAW Final Re sult [address] [address], [place] [phone] * LIPID PANEL (12/08/2019 9:52 AM EST) CHOLESTEROL 175 0 - 200 mg/dL [facility] TRIGLYCERIDES 92 0 - 150 mg/dL [facility] HDL CHOLESTEROL 58 >40 mg/dL [facility] LDL CALCULATED 99 0 - 100 mg/dL [facility] TC-HDLC RATIO 3.0 0 - 4.4 mg/dL [facility] Blood specimen (specimen) Blood / Unknown 12/08/2019 9:52 AM EST 12/08/2019 11:27 AM EST Narrative [facility] - 12/08/2019 4:52 PM EST [employer] [address] Diagnostic Imaging Manager - Sarah Benites MD PT ID [id number] ORD# [id number] Nyasia Mendoza BUSINESS ANALYST PROJECT MANAGER LAB - BLOOD DRAW Final Re sult Performing Organization Address City/State/[facility] Co de Phone Number [address] [address], * MICROALBUMIN/CREATININE RATIO, URINE, RANDOM (12/08/2019 9:51 AM EST) CREATININE, RANDOM URINE 278 mg/dL [facility] MICROALBUMIN, RANDOM 19.5 0.0 - 29.0 mg/L [facility] MICROALB/CRE RATIO RANDOM 7.0 0.0 - 30.0 mg/G [facility] Urine specimen (specimen) Urine specimen / Unknown 12/08/2019 9:51 AM EST 12/08/2019 11:27 AM EST Narrative [facility] - 12/08/2019 5:00 PM EST [employer] [address] Diagnostic Imaging Manager - Sarah Benites MD PT ID [id number] ORD# [id number] Nyasia [facility] URINE AMBULATORY Edit ed Result - Final [facility] [address] [place] [address], from Last 3 Months or Most Recently Relevant to Health Maintenance Insurance [employer] Care Teams Director Script Relationship Specialty Start Date End Date Nyasia Mendoza FNP [address] [place] [id number] PCP - General Family Medicine, [employer] TR[employer] MECHANIC 12/06/16
== END 2025-09-02 14:59 | disposition home or self-care (01) ==
LOC: HO.HNS 14:10
PROVIDERS: Visit Provider Physician Assistant
DX: M96.1 Postlaminectomy syndrome, not elsewhere classified (principal)
CPT/HCPCS: 99213

== ENCOUNTER → 2025-09-02 14:10 | Outpatient (BNVA) | payer OTHER, SELFPAY | PROVIDERS: Visit Provider Physician Assistant | DX: M96.1 Postlaminectomy syndrome, not elsewhere classified (principal) | CPT/HCPCS: 99212 ==

== ENCOUNTER 2025-09-28 13:17 | Outpatient (AMB) | payer OTHER, SELFPAY ==
--- NOTE | 2025-09-28 13:25 | A.OFFVIS_ITS ---
Vital Signs 09/28/25 13:27 Height 5 ft 3 in Weight 207 lb BMI 36.7 BP 153/74 H Blood Pressure Location Lt brachial Position Sitting Respiration 16 Pulse 127 H Pulse Source Pulse Oximeter Pulse Oximetry (%) 99 Oxygen Delivery Method Room Air Intake Visit Reasons: postlaminectomy syndrome Frame Welder C[employer] Utility Trailers Required: No Accompanied by: Significant Other Allergies ciprofloxacin (From CIPRO) Allergy (Unknown, Verified 09/28/25 13:28) HIVES cortisone (CORTISONE) Allergy (Unknown, Verified 09/28/25 13:28) CHEST TIGHTENS penicillin G Allergy (Unknown, Verified 09/28/25 13:28) Unknown Penicillins (PCN) Allergy (Unknown, Verified 09/28/25 13:28) HIVES Medication List - Last Reconciled 09/28/25 by Elsi Mallory LPN amitriptyline 100 mg PO BEDTIME celecoxib (Celebrex) 200 mg PO BID 30 days omeprazole 20 mg PO BID rosuvastatin 5 mg PO DAILY HPI HPI postlaminectomy syndrome: Details: History of Present Illness The patient is a 50-year-old individual presenting with failed back surgery syndrome. The patient underwent back surgery in 2020, which did not alleviate the symptoms. The patient reports constant pain rated at 8/10, described as aching, burning, stabbing, and pins and needles sensation starting in the right lower back and radiating down the right thigh into the calf. The patient has a history of sciatica, which was a contributing factor to the decision for surgery. Despite the surgery, the patient continues to experience significant discomfort and functional limitations. The patient also has a diagnosis of fibromyalgia, for which the patient is currently taking amitriptyline 100 mg. The patient has tried various medications including gabapentin, Celebrex, Tylenol, tramadol, and oxycodone, with limited relief. Pain Description - Onset: Post-surgical, persistent since 2020; s/p lumbar fusion at L4/5 - Quality: Aching, burning, stabbing, pins and needles - Location: Right lower back radiating to right thigh and calf - Severity: Constant, rated 8/10 - Exacerbating factors: Physical activity, stress - Relieving factors: None identified; oral meds including APAP/tramadol/NSAIDs not helpful - Impact: Limits ability to work and engage in activities with children Physical Exam - Appears afebrile. - Alert and oriented. - Mood and affect distressed. - Follows and participates in conversation appropriately. Pain Management - Affect: Pain significantly impacts mood and daily activities, limiting interaction with children. - Analgesia: Current pain level is 8/10; medications tried include gabapentin, Celebrex, Tylenol, tramadol, oxycodone, and amitriptyline with limited relief. - Adverse Effects: None reported from current medications. - Activities of Daily Living: Pain limits ability to work and engage in family activities. - Aberrant Drug Related Behaviors: None reported. [facility] Surgical History (Updated 08/03/25 @ 09:52 by ZURDO Cha) History of sleeve gastrectomy Hx of section Hx of appendectomy History of elbow surgery History of lumbar surgery History of arthroscopic surgery of shoulder Hx of carpal tunnel repair Hx of knee surgery Social History (Updated 08/03/25 @ 09:52 by ZURDO Cha) Patient Tobacco Use Status: Never used Tobacco Current occupational status: unemployed Physical Exam Vital Signs: Last Vital Signs Pulse 127 H 09/28/25 13:27 Resp 16 09/28/25 13:27 BP 153/74 H 09/28/25 13:27 Pulse Ox 99 09/28/25 13:27 Oxygen Delivery Method Room Air 09/28/25 13:27 BMI result Body Mass Index 36.7 Assessment & Plan Assessment & Plan (1) Failed back syndrome of lumbar spine: Code(s): M96.1 - Postlaminectomy syndrome, not elsewhere classified Category: Medical Plan Plan Patient was informed and verbally consented to the use of an ambient scribe for clinic note documentation during this visit. 1. Failed Back Surgery Syndrome - Plan for trial of spinal cord stimulation after psychological clearance. - Discussed potential for temporary relief and long-term outcomes. - Consideration of suzetrigine in the future with insurance coverage. 2. Sciatica - Addressed as part of the failed back surgery syndrome management. 3. Fibromyalgia - Continue current medication regimen with amitriptyline 100 mg. Discussion Notes I discussed with the patient the plan for a trial of spinal cord stimulation, explaining the steps involved including psychological evaluation and the trial period with temporary placement of the stimulator. I emphasized the potential for temporary relief and the possibility that the stimulator may not provide long-term benefits. We also discussed the option of a new medication, noting the challenges with insurance coverage and the potential cost implications. Patient Instructions - Complete the psychological evaluation as required for the spinal cord stimulator trial. - Fill out the questionnaire for potential medication coverage. - Follow up with the clinic after the trial period to discuss the effectiveness of the stimulator. Coding Level of Care Code New Pt Level 4 (01739) Diagnoses Failed back syndrome of lumbar spine M96.1
[2025-09-28 13:27] VITALS: BP 153/74; PULSE 127; RESP 16; O2SAT 99; BMI 36.7
--- OUTSIDE RECORDS SUMMARY | 2025-09-28 17:57 | XMS_ITS | Clinical Summary ---
Author Organization [facility] Address [address] [place] [address] Phone Care Team Providers Care Lead Software Qa Engineer Name Role Phone Physician, No Pcp Primary [...] - 06/29/2025 11:59 PM EDT Hospital Encounter [facility] [address] [place] [address] Right hip pain Discharge Disposition: Home or Self Care from Last 3 Months Surgical History Surgery Date Site/Laterality Comments KNEE ARTHROPLASTY Bilateral PROCEDURE: UT ARTHRS KNEE ABRASION ARTHRP/MEDICAL REVIEWER DRLG/MICROFX CARPAL TUNNEL RELEASE Bilateral PROCEDURE: UT NEUROPLASTY &/TRANSPOS MEDIAN NRV CARPAL TUNNE APPENDECTOMY PROCEDURE: UT APPENDECTOMY SECTION PROCEDURE: HISTORICAL DELIVERY ELBOW SURGERY [...] Annual Urine Albumin-Creatinine Ratio (uACR) 03/22/2025 12/08/2019 COVID-19 Vaccine ( season) 2025 11/12/2024, 11/17/2021, 04/26/2021, Additional history exists Diabetes: Blood Sugar Control Test (HGBA1C) 09/22/2025 03/22/2025, 10/04/2020 Hepatitis A Vaccines (2 of 2 - Risk 2-dose series) 02/01/2026 08/04/2025 Diabetes: Annual GFR (Glomerular Filtration Rate) 03/22/2026 03/22/2025, 10/04/2020 DTaP,Tdap,and Td Vaccines (3 - Td or Tdap) 12/08/2029 12/08/2019, 12/22/2008 RSV Immunization Adult Patients (1 - 1-dose 75+ series) 2051 Pneumococcal Vaccine: Pediatrics (0 to 5 Years) [...] Comments XR HIP 2-3 VIEWS RIGHT Routine 5 9:17 AM EDT Right hip pain COMPREHENSIVE [...] of the pelvis and right hip. Code 62302 -------- FINAL REPORT -------- Dictated By: Sammy Young Dictated Date: 06/29/2025 09:21 ET Assigned Physician: Sammy Young Reviewed and Electronically Signed By: Sammy Young Signed Date: 06/29/2025 09:23 ET Workstation ID: [id number] Transcribed By: Self Edit Transcribed Date: 06/29/2025 [...] of the pelvis and right hip. Code 88604 -------- FINAL REPORT -------- Dictated By: Sammy Young Dictated Date: 06/29/2025 09:21 ET Assigned Physician: Sammy Young Reviewed and Electronically Signed By: Sammy Young Signed Date: 06/29/2025 09:23 ET Workstation ID: [id number] Transcribed By: Self Edit Transcribed Date: 06/29/2025 09:21 ET us Tracey Storey MD IMG XR PROCEDURES Final Result * (ABNORMAL) Hemoglobin A1c (03/22/2025 9:10 PM EDT) Pathologist [facility] Hemoglobin A1C 8.3(H) <6.5 % LAB CHEMISTRY METHOD 03/23/2025 1:53 PM EDT [facility] Mean Bld Glu Estim. 192 mg/dL LAB CHEMISTRY METHOD 03/23/2025 1:53 PM EDT [facility] Blood Venous blood specimen / Unknown Venipuncture / Unknown 03/22/2025 9:10 PM EDT 03/22/2025 9:39 PM EDT us Eva BENNETT LAB BLOOD ORDERABLES Final R esult [facility] [address] [place] [address], [place] [phone] * (ABNORMAL) Comprehensive metabolic panel (03/22/2025 9:10 PM EDT) [facility] Sodium 136 133 - 145 mmol/L LAB CHEMISTRY METHOD 03/22/2025 10:04 PM EDT [facility] Potassium 4.3 3.5 - 5.5 mmol/L LAB CHEMISTRY METHOD 03/22/2025 10:04 PM EDT [facility] Chloride 101 96 - 110 mmol/L LAB CHEMISTRY METHOD 03/22/2025 10:04 PM [facility] CO2 30 21 - 32 mmol/L LAB CHEMISTRY METHOD 03/22/2025 10:04 PM [facility] Anion Gap 5 3 - 11 LAB CHEMISTRY METHOD 03/22/2025 10:04 PM [facility] Glucose 179(H) 70 - 100 mg/dL LAB CHEMISTRY METHOD 03/22/2025 10:04 PM [facility] BUN 13 5 - 25 mg/dL LAB CHEMISTRY METHOD 03/22/2025 10:04 PM [facility] Creatinine 0.76 0.50 - 1.10 mg/dL LAB CHEMISTRY METHOD 03/22/2025 10:04 PM [facility] eGFR 97 >=60 mL/min/1. 73m2 LAB CHEMISTRY METHOD 03/22/2025 10:04 PM [facility] Comment:Calculation based on the Chronic Kidney Disease Epidemiology Collaboration (CKD-EPI) equation refit without adjustment for race. BUN/Creatinine Ratio 17.1 LAB CHEMISTRY METHOD 03/22/2025 10:04 PM [facility] Calcium 9.1 8.5 - 10.5 mg/dL LAB CHEMISTRY METHOD 03/22/2025 10:04 [facility] AST (SGOT) 35 10 - 42 unit/L LAB CHEMISTRY METHOD 03/22/2025 10:04 [facility] ALT (SGPT) 31 10 - 60 unit/L LAB CHEMISTRY METHOD 03/22/2025 10:04 PM [facility] Alkaline Phosphatase 79 42 - 121 unit/L LAB CHEMISTRY METHOD 03/22/2025 10:04 PM [facility] Total Protein 7.7 6.0 - 8.0 g/dL LAB CHEMISTRY METHOD 03/22/2025 10:04 PM [facility] Albumin 3.9 3.2 - 5.0 g/dL LAB CHEMISTRY METHOD 03/22/2025 10:04 PM EDT [facility] Total Bilirubin 0.4 0.0 - 1.4 mg/dL LAB CHEMISTRY METHOD 03/22/2025 10:04 PM EDT [facility] Blood Venous blood specimen / Unknown Venipuncture / Unknown 03/22/2025 9:10 PM EDT 03/22/2025 9:39 PM EDT us Kimmy BENNETT LAB BLOOD ORDERABLES Final Result [facility] ([facility]) [facility] [address] [place] [address], from Last 3 Months or Most Recently Relevant to Health Maintenance Insurance [facility] MEDICAID ADVANTAGE Advance Directives * Full Code [...] currently active code status orders. Care Teams Lead Software Qa Engineer Relationship Specialty Start Date End Date Physician, No Pcp PCP - General 06/29/25 Bo Carlin CNP Primary Care Provider 05/18/25
--- OUTSIDE RECORDS SUMMARY | 2025-09-28 17:57 | XMS_ITS | Clinical Summary ---
Author Organization [facility] Address [address] [place] [address] Care Team Providers Care Recreation Technician Name Role Phone Nyasia Castellano NP Primary Care Provider [phone]- [phone] Social History Tobacco Use Types Packs/Day Years [...] age to complete this topic Care Teams Recreation Technician Relationship Specialty Start Date End Date Nyasia Castellano NP [address] [place] [address] PCP - General Nurse Practitioner 05/26/21
== END 2025-09-28 13:59 | disposition home or self-care (01) ==
LOC: HO.PMC 13:17
PROVIDERS: Visit Provider Internal Medicine
DX: M96.1 Postlaminectomy syndrome, not elsewhere classified (principal)
CPT/HCPCS: 99204

== ENCOUNTER → 2025-09-28 13:17 | Outpatient (BNVA) | payer OTHER, SELFPAY | PROVIDERS: Visit Provider Internal Medicine | DX: M96.1 Postlaminectomy syndrome, not elsewhere classified (principal) | CPT/HCPCS: 99202 ==